=== PATIENT | female | born 1990 | race Caucasian/White ===

== ENCOUNTER 2024-11-22 14:27 | Outpatient (OUT) | payer OTHER, SELFPAY | END 2024-11-22 14:28 | disposition home or self-care (01) | LOC: PST 14:33 | PROVIDERS: Visit Provider Obstetrics & Gynecology | DX: Z01.818 Encounter for other preprocedural examination (principal); N94.6 Dysmenorrhea, unspecified; R10.2 Pelvic and perineal pain ==

== ENCOUNTER 2024-11-26 07:17 | Day surgery (SDC) | payer OTHER, SELFPAY ==
[2024-11-22 14:55] VITALS: BP 105/71; PULSE 71; TEMP 36.3; O2SAT 99; BMI 27.1
[2024-11-26] VITALS (11 sets, daily range): BP systolic 92–106; BP diastolic 44–80; PULSE 55–85; TEMP 36.3; O2SAT 95–100; BMI 26.8
--- OUTSIDE RECORDS SUMMARY | 2024-11-26 07:19 | XMS_ITS | CCD ---
Author Organization [facility] Care Team Providers Care General Administrator Name Role Phone PEEWEE KAUFFMAN Attending Unavail PEEWEE Dee Attending Unavail Salima Weeks Primary Care Provider [phone] Salima Bustamante Primary Care Provider Salima Bustamante Primary Care Provider [phone] Liz DIRECTOR EXTERNAL COMMUNICATIONS - Salima LICONA Primary Care Provider Maicol Sigala DO Primary Care Provider ELIA VALDEZ Attending Unavailable SALIMA BUSTAMANTE Primary Care Unavailable BRENNAN RAMON Attending Unavailable HETAL HOPKINS Attending Unavailable BRENNAN RAMON Referring Unavailable HETAL HOPKINS Attending Unavailable Allergies Allergy Classification Reported Allergen(s) Allergy Type Date of Onset Reaction(s) Facility (6 sources) [place] Allergy to substance 06-16-2023 Other [facility] Work Phone: Medications Current Medications Medication Drug Class(es) Dates Sig (Normalized) Sig (Original) Acetaminophen / HYDROcodone (6 sources) Opioid Agonist Start: 12-09-2019 hydrocodone-acetam inophen (NORCO) tablet 5-325 mg (STARTER PACK) take 1 tablet by addis th every six hours as needed for pain HYDROcodone-acetaminophen (NORCO) 5-325 MG per tablet Take 1 tablet by mouth every 6 hours as needed for Pain. Active ibuprofen 800 mg oral tablet (6 sources) Nonsteroidal Anti-inflammatory Drug Start: 09-15-2024 End: 12-14-2024 take 1 tablet by mouth once daily as needed for pain ibuprofen 800 MG tablet Indications: Dysmenorrhea Take 1 tablet (800 mg) by mouth Daily as needed for mild pain (2 days before and first 2 days during period) 12 tablet 09/15/2024 12/14/2024 Active take 2 tablets by mo uth every six hours as needed for pain ibuprofen (ADVIL;MOTRIN) 200 MG tablet T joao 400 mg by mouth every 6 hours as needed for Pain 0 Active metroNIDAZOLE 500 mg oral tablet (1 source) Nitroimidazole Antimicrobial Start: 04-06-2020 End: 04-13-2020 take 1 tablet by mouth twice daily metroNIDAZOLE (FLAGYL) 500 MG tablet Indications: Vaginal discharge Take 1 tablet by mouth 2 times daily for 7 days 14 tablet 0 04/06/2020 04/13/2020 Active naproxen sodium 275 mg oral tablet (7 sources) Nonsteroidal Anti-inflammatory Drug Start: 04-06-2020 take 1 tablet by mouth three times daily at mealtime as needed for pain naproxen sodium (ANAPROX) 275 MG tablet Indications: Pelvic pain in female Take 1 tablet by mouth 3 times daily (with meals) As needed for pelvic pain 60 tablet 3 04/06/2020 Active Start: 03-15-2019 End: 12-09-2019 take 1 tablet by mouth three times daily at mealtime as needed for pain naproxen sodium (ANAPROX) 275 MG tablet Indications: Pelvic cramping Take 1 tablet by mouth 3 times daily (with meals) As needed for cramping pain 60 tablet 3 03/15/2019 12/09/2019 Discontinued ondansetron 4 mg disintegrating oral tablet (9 sources) Serotonin-3 Receptor Antagonist Start: 09-15-2024 ondansetron ODT (Zofran-ODT) 4 MG disintegrating tablet Take 4 mg by mouth 09/15/2024 Active Start: 09-15-2024 End: 09-15-2024 4 mg, IntraVENous, ONCE, 1 d ose, On Fri09/15/24 at 0630 Start: 03-23-2022 End: 03-23-2022 ondansetron (ZOFRAN) injecti on 4 mg Start: 12-09-2019 End: 12-09-2019 ondansetron (ZOFRAN) injecti on 4 mg Completed/Discontinued Medications Medication Drug Class(es) Dates Sig (Normalized) Sig (Original) azithromycin 500 mg oral tablet (1 source) Macrolide Antimicrobial Start: 03-18-2019 End: 12-09-2019 take 2 tablets by mouth once daily, then take 1 tablet by mouth once azithromycin (ZITHROMAX) 500 MG tablet Indications: Chlamydia Take 2 tablets by mouth daily Take both tablets once 2 tablet 0 03/18/2019 12/09/2019 Discontinued (Therapy completed) ethinyl estradiol 0.035 mg / norgestimate 0.25 mg oral tablet (3 sources) Progestin, Estrogen Start: 12-17-2019 End: 03-23-2022 take 1 tablet by mouth once daily, then take 0.25-35 tablets by mouth once norgestimate-ethin yl estradiol (ESTARYLLA) 0.25-35 MG-MCG per tablet Indications: Irregular menstrual cycle TAKE 1 TABLET BY MOUTH DAILY 28 tablet 12 12/17/2019 03/23/2022 Discontinued (Therapy completed) Start: 04-09-2019 End: 12-09-2019 take 1 tablet by mouth once daily ESTARYLLA 0.25-35 MG-MCG per tablet Indications: Irregular menstrual cycle TAKE 1 TABLET BY MOUTH DAILY 28 tablet 0 04/09/2019 12/09/2019 Discontinued (Therapy completed) iopamidol (ISOVUE-370) 76 % injection 75 mL (1 source) Start: 03-23-2022 End: 03-23-2022 iopamidol (ISOVUE-370) 76 % injection 75 mL 1 ml ketorolac tromethamine 30 mg/ml cartridge (2 sources) Nonsteroidal Anti-inflammatory Drug, Cyclooxygenase Inhibitor Start: 09-15-2024 End: 09-15-2024 30 mg, IntraVENous, ONCE, 1 dose, On Fri09/15/24 at 0630, Do not administer for more than 5 days. Start: 03-23-2022 End: 03-23-2022 ketorolac (TORADOL) injectio n 30 mg 1 ml morphine sulfate 2 mg/ml cartridge (1 source) Opioid Agonist Start: 03-23-2022 End: 03-23-2022 morphine (PF) injection 2 mg PARoxetine hydrochloride 10 mg oral tablet (3 sources) Serotonin Reuptake Inhibitor Start: 07-17-2023 End: 09-15-2024 take 1 tablet by mouth at bedtime PARoxetine (Paxil) 10 MG tablet Indications: Current mild episode of major depressive disorder without prior episode (HCC) (CMS/HCC) Take 1 tablet (10 mg) by mouth at bedtime. 90 tablet 1 07/17/2023 09/15/2024 Discontinued 50 ml sodium chloride 9 mg/ml injection (1 source) Start: 09-15-2024 End: 09-15-2024 1,000 mL, IntraVENous, at 983.6 mL/hr, Administer over 61 Minutes, ONCE, On Fri09/15/24 at 0630, For 1 dose Problems Active Problems Problem Classification Problem Date Documented Date Episodic/Chronic Abdominal pain (13 sources) Abdominal pain; Translations: [Lower abdominal pain] Onset: 06-16-2023 Episodic Diabetes mellitus without complication (2 sources) Abnormal glucose level; Translations: [Other abnormal glucose] 09-15-2024 Episodic Malaise and fatigue (2 sources) Fatigue; Translations: [Other fatigue] 09-15-2024 Episodic Menstrual disorders (8 sources) Dysmenorrhea; Translations: [Dysmenorrhea, unspecified] 09-15-2024 Chronic Nausea and vomiting (2 sources) Nausea; Translations: [Nausea] Onset: 09-15-2024 09-15-2024 Episodic Nonmalignant breast conditions (4 sources) Lump in upper outer quadrant of left breast; Translations: [Unspecified lump in the left breast, upper outer quadrant] Episodic Nutritional deficiencies (2 sources) Vitamin D deficiency; Translations: [Vitamin D deficiency, unspecified] 09-15-2024 Chronic Other female genital disorders (1 source) Vaginal discharge; Translations: [Vaginal discharge] Episodic Other screening for suspected conditions (not mental disorders or infectious disease) (20 sources) Abnormal cytology findings; Translations: [LGSIL (low grade squamous intraepithelial dysplasia)] Onset: 09-24-2012 Resolved: 05-12-2013 12-27-2014 Episodic Unclassified (1 source) Patient encounter status; Translations: [Encounter for well woman exam with routine gynecological exam] Past or Other Problems Problem Classification Problem Date Documented Da te Episodic/Chronic Allergic reactions (13 sources) Allergic reaction to nickel; Translations: [Allergic contact dermatitis due to metals] Onset: 10-13-2014 10-13-2014 Episodic Deficiency and other anemia (7 sources) Iron deficiency anemia; Translations: [Iron deficiency anemia, unspecified] Onset: 03-08-2013 Resolved: 05-12-2013 05-12-2013 Episodic Mood disorders (5 sources) Mood disorders Onset: 09-15-2024 09-15-2024 Other and delivery including normal (7 sources) ; Translations: [Encounter for supervision of normal , unspecified, unspecified trimester] Onset: 12-24-2012 Resolved: 05-12-2013 05-12-2013 Episodic Residual codes; unclassified (2 sources) H/O: section; Translations: [S/P repeat low transverse ] Onset: 10-09-2012 Resolved: 05-12-2013 05-12-2013 Episodic Results Test Name Value Interpretation Reference Range Facility CBC with Auto Differentialon 09-15-2024 Basophils (Bld) [#/Vol] 0.04 10*3/uL [facility] Basophils/100 WBC (Bld) 0 % 0 - 2 % B on [facility] Eosinophils (Bld) [#/Vol] 0.12 10*3/uL [facility] Eosinophils/100 WBC (Bld) 1 % 1 - 4 % [facility] Erythrocyte distribution width (RBC) [Ratio] 12.7 % 11.8 - 14.4 % [facility] Hematocrit (Bld) [Volume fraction] 38.2 % 36.3 - 47.1 % [facility] Hemoglobin (Bld) [Mass/Vol] 12.8 g/dL 11.9 - 15.1 g/dL [facility] Immature granulocytes (Bld) [#/Vol] 0.03 10*3/uL [facility] Immature granulocytes/100 WBC (Bld) 0 % 0 [facility] Interpretation and review of laboratory results Abnormal [facility] Lymphocytes/100 WBC (Bld) 13 % Low 24 - 43 % [facility] Lymphocytes/100 WBC (Bld) 1.20 % [facility] MCH (RBC) [Entitic mass] 31.8 pg 25.2 - 33.5 pg [facility] MCHC (RBC) [Mass/Vol] 33.5 g/dL 28.4 - 34.8 g/dL [facility] MCV (RBC) [Entitic vol] 95.0 fL 82.6 - 102.9 fL [facility] Monocytes/100 WBC (Bld) 5 % 3 - 12 % B on [facility] Monocytes/100 WBC (Bld) 0.43 % B on [facility] Neutrophils/100 WBC (Bld) 81 % High 36 - 65 % [facility] Nucleated RBC/100 WBC (Bld) [Ratio] 0.0 % 0.0 per 100 WBC [facility] Platelet mean volume (Bld) [Entitic vol] 10.6 fL 8.1 - 13.5 fL [facility] Platelets (Bld) [#/Vol] 315 10*3/uL [facility] RBC (Bld) [#/Vol] 4.02 10*6/uL 3.95 - 5.1 1 m/uL [facility] Segmented neutrophils/100 WBC (Bld) 7.43 % [facility] WBC other (Bld) [#/Vol] 9.3 B on [facility] CBC with Diffon 09-15-2024 Abs. Basophil 0.04 k/uL Normal 0.00-0.20 [facility] Comment on above: Performed By: #### C DP, CP #### [facility] [address] [place] [address] [place] [address] Emt B: Rancho Bobby MD Abs.Imm.Granulocyte 0.03 k/uL Normal 0.00-0.30 [facility] Comment on above: Performed By: #### C DP, CP #### [facility] [address] [place] [address] [place], [place] [id number] Emt B: Rancho Bobby MD Abs.Neutrophil (Seg) 7.43 k/uL Normal 1.50-8.10 [facility] Comment on above: Performed By: #### C DP, CP #### [facility] [address] [place] [address] Emt B: Rancho Bobby MD Basophils/100 WBC (Bld) 0 % Normal 0-2 M [facility] Comment on above: Performed By: #### C DP, CP #### [facility] [address] [place] [address] [place] [address] Emt B: Rancho Bobby MD Eosinophils (Bld) [#/Vol] 0.12 10*3/uL Normal 0.00-0.44 [facility] Comment on above: Performed By: #### C DP, CP #### [address] [place], [place] [phone] Emt B: Rancho Bobby MD Eosinophils/100 WBC (Bld) 1 % Normal 1-4 [facility] Comment on above: Performed By: #### C DP, CP #### [address] [place] [address] Emt B: Rancho Bobby MD Erythrocyte distribution width (RBC) [Ratio] 12.7 % Normal 11.8-14.4 [facility] Comment on above: Performed By: #### C DP, CP #### [address] [place], [place] [address] Emt B: Rancho Bobby MD Hematocrit (Bld) [Volume fraction] 38.2 % Normal 36.3-47.1 [facility] Comment on above: Performed By: #### C DP, CP #### [address] [place], [place] [address] Emt B: Rancho Bobby MD Hemoglobin (Bld) [Mass/Vol] 12.8 g/dL Normal 11.9-15.1 [facility] Comment on above: Performed By: #### C DP, CP #### [address] [place], [facility] Emt B: Rancho Bobby MD Immature granulocytes/100 WBC (Bld) 0 % Normal 0 [facility] Comment on above: Performed By: #### C DP, CP #### [address] [place], [place] [id number] Emt B: Rancho Bobby MD Lymphocytes (Bld) [#/Vol] 1.20 10*3/uL Normal 1.10-3.70 [facility] Comment on above: Performed By: #### C DP, CP #### [facility] [address] [place] [address] Dr[place], [place] [address] Emt B: Rancho Bobby MD Lymphocytes/100 WBC (Bld) 13 % Low 24-43 [facility] Comment on above: Performed By: #### C DP, CP #### [address] [place], [place] [address] Emt B: Rancho Bobby MD MCH (RBC) [Entitic mass] 31.8 pg Normal 25.2-33.5 [facility] Comment on above: Performed By: #### C DP, CP #### [address] [place], [place] [address] Emt B: Rancho Bobby MD MCHC (RBC) [Mass/Vol] 33.5 g/dL Normal 28.4-34.8 [facility] Comment on above: Performed By: #### C DP, CP #### [address] [place], [place] [address] Emt B: Rancho Bobby MD MCV (RBC) [Entitic vol] 95.0 fL Normal 82.6-102.9 [facility] Comment on above: Performed By: #### C DP, CP #### [address] [place], [place] [address] Emt B: Rancho Bobby MD Monocytes (Bld) [#/Vol] 0.43 10*3/uL Normal 0.10-1.20 [facility] Comment on above: Performed By: #### C DP, CP #### [address] [place], [facility]83 Emt B: Rancho Bobby MD Monocytes/100 WBC (Bld) 5 % Normal 3-12 M [facility] Comment on above: Performed By: #### C DP, CP #### [facility] [address] [place] [address] Emt B: Rancho Bobby MD Neutrophil (Seg) 81 % High 36-65 [facility] Comment on above: Performed By: #### C DP, CP #### [facility] [address] [place], [place] [phone] Emt B: Rancho Bobby MD NRBC Automated 0.0 per 100 WBC Normal 0.0 [facility] Comment on above: Performed By: #### C DP, CP #### [facility] [address] [place] [address] Emt B: Rancho Bobby MD Platelet mean volume (Bld) [Entitic vol] 10.6 fL Normal 8.1-13.5 [facility] Comment on above: Performed By: #### C DP, CP #### [facility] [address] [place] [address] [place] [address] Emt B: Rancho Bobby MD Platelets (Bld) [#/Vol] 315 10*3/uL Normal 138-453 [facility] Comment on above: Performed By: #### C DP, CP #### [address] [place], [place] [id number] Emt B: Rancho Bobby MD RBC (Bld) [#/Vol] 4.02 10*6/uL Normal 3.95-5.11 [facility] Comment on above: Performed By: #### C DP, CP #### [address] [place], [place] [phone] Emt B: Rancho Bobby MD WBC (Bld) [#/Vol] 9.3 10*3/uL Normal 3.5-11.3 [facility] Comment on above: Performed By: #### C DP, CP #### [address] [place] [address] Emt B: Rancho Bobby MD [facility] 09-15-2024 Albumin [Mass/Vol] 4.1 g/dL 3.5 - 5.2 g/dL [facility] Albumin/Globulin [Mass ratio] 1.4 {ratio} 1.0 - 2.5 [facility] ALP [Catalytic activity/Vol] 57 U/L 35 - 104 U/L [facility] ALT [Catalytic activity/Vol] 11 U/L 10 - 35 U/L [facility] Anion gap [Moles/Vol] 7 mmol/L Low 9 - 16 mmol/L [facility] AST [Catalytic activity/Vol] 19 U/L 10 - 35 U/L [facility] Bilirubin [Mass/Vol] 0.2 mg/dL 0.00 - 1.20 mg/dL [facility] Calcium [Mass/Vol] 8.6 mg/dL 8.6 - 10. 4 mg/dL [facility] Chloride [Moles/Vol] 107 mmol/L 98 - 10 7 mmol/L [facility] CO2 [Moles/Vol] 25 mmol/L 20 - 31 mmol/L [facility] Creatinine [Mass/Vol] 0.8 mg/dL 0.50 - 0.90 mg/dL [facility] Est, Yusef Wood Rate - PINF [facility] Comment on above: These results are not intended for use in patients <18 years of age. eGFR results are calculated without a race factor using the 2020 CKD-EPI equation. Careful clinical correlation is recommended, particularly when comparing to results calculated using previous equations. The CKD-EPI equation is less accurate in patients with extremes of muscle mass, extra-renal metabolism of creatine, excessive creatine ingestion, or following therapy that affects renal tubular secretion. Glucose [Mass/Vol] 100 mg/dL High 74 - 99 mg/dL [facility] Interpretation and review of laboratory results Abnormal [facility] Potassium [Moles/Vol] 4.3 mmol/L 3.7 - 5.3 mmol/L [facility] Protein [Mass/Vol] 7.0 g/dL 6.6 - 8.7 g/dL [facility] Sodium [Moles/Vol] 139 mmol/L 136 - 145 mmol/L [facility] Urea nitrogen [Mass/Vol] 17 mg/dL 6 - 20 mg/dL [facility] Urea nitrogen/Creatinine [Mass ratio] 21 mg/mg High 9 - 20 [facility] Comp Metabolic Profon 2024 Albumin [Mass/Vol] 4.1 g/dL Normal 3.5-5.2 [facility] Comment on above: Performed By: #### C DP, CP #### [facility] [address] [place], [place] [phone] Emt B: Rancho Bobby MD Albumin/Glob Ratio 1.4 Normal 1.0-2.5 [facility] Comment on above: Performed By: #### C DP, CP #### [facility] [address] [place], [place] [phone] Emt B: Rancho Bobby MD Alkaline Phos 57 U/L Normal 35-104 [facility] Comment on above: Performed By: #### C DP, CP #### [facility] [address] [place], [place] [phone] Emt B: Rancho Bobby MD ALT [Catalytic activity/Vol] 11 U/L Normal 10-35 [facility] Comment on above: Performed By: #### C DP, CP #### [facility] [address] [place], [place] [phone] Emt B: Rancho Bobby MD Anion gap [Moles/Vol] 7 mmol/L Low 9-16 [facility] Comment on above: Performed By: #### C DP, CP #### [facility] [address] [place] [address] Emt B: Rancho Bobby MD AST [Catalytic activity/Vol] 19 U/L Normal 10-35 [facility] Comment on above: Performed By: #### C DP, CP #### [facility] [address] [place], [place] [phone] Emt B: Rancho Bobby MD Bilirubin [Mass/Vol] 0.2 mg/dL Normal 0.00-1.20 [facility] Comment on above: Performed By: #### C DP, CP #### [facility] [address] [place], [place] [phone] Emt B: Rancho Bobby MD BUN/CRE Ratio 21 High 9-20 [facility] Comment on above: Performed By: #### C DP, CP #### [facility] [address] [place], [place] [phone] Emt B: Rancho Bobby MD Calcium [Mass/Vol] 8.6 mg/dL Normal 8.6-10.4 [facility] Comment on above: Performed By: #### C DP, CP #### [facility] [address] [place] [address] [place], [place] [phone] Emt B: Rancho Bobby MD Chloride [Moles/Vol] 107 mmol/L Normal 98-107 [facility] Comment on above: Performed By: #### C DP, CP #### [address] [place], [place] [phone] Emt B: Rancho Bobby MD CO2 [Moles/Vol] 25 mmol/L Normal 20-31 [facility] Comment on above: Performed By: #### C DP, CP #### [facility] [address] [place] [address] [place], [place] [phone] Emt B: Rancho Bobby MD Creatinine [Mass/Vol] 0.8 mg/dL Normal 0.50-0.90 [facility] Comment on above: Performed By: #### C DP, CP #### [facility] [address] [place], [place] [phone] Emt B: Rancho Bobby MD GFR/1.73 sq M.predicted among non-blacks MDRD (S/P/Bld) [Vol rate/Area] mL/min/{1.73_m2} Normal >60 [facility] Comment on above: Result Comment: These results are not intended for use in patients <18 years of age. eGFR results are calculated without a race factor using the 2020 CKD-EPI equation. Careful clinical correlation is recommended, particularly when comparing to results calculated using previous equations. The CKD-EPI equation is less accurate in patients with extremes of muscle mass, extra-renal metabolism of creatine, excessive creatine ingestion, or following therapy that affects renal tubular secretion. Performed By: #### C DP, CP #### [facility] [address] [place] [address] [place] [address] Emt B: Rancho Bobby MD Glucose [Mass/Vol] 100 mg/dL High 74-99 [facility] Comment on above: Performed By: #### C DP, CP #### [facility] [address] [place] [address] [place], [place] [phone] Emt B: Rancho Bobby MD Potassium [Moles/Vol] 4.3 mmol/L Normal 3.7-5.3 [facility] Comment on above: Performed By: #### C DP, CP #### [address] [place], [place] [phone] Emt B: Rancho Bobby MD Protein [Mass/Vol] 7.0 g/dL Normal 6.6-8.7 [facility] Comment on above: Performed By: #### C DP, CP #### [facility] [address] [place] [address] [place] [place], [place] [phone] Emt B: Rancho Bobby MD Sodium [Moles/Vol] 139 mmol/L Normal 136-145 [facility] Comment on above: Performed By: #### C DP, CP #### [address] [place], [place] [phone] Emt B: Rancho Bobby MD Urea nitrogen [Mass/Vol] 17 mg/dL Normal 6-20 [facility] Comment on above: Performed By: #### C DP, CP #### [facility] [address] [address] Emt B: Rancho Bobby MD HCG ( test) Ql (U)o n 09-15-2024 Interpretation and review of laboratory results Normal [facility] Preg Test, Ur Negative Negative [facility] care [facility] Microscopic Urinalysison Bacteria LM Ql (Urine sed) 2+ Abnormal None [facility] Epithelial cells LM.HPF (Urine sed) [#/Area] 2 TO 5 [facility] Interpretation and review of laboratory results Abnormal [facility] Mucus Ql (Urine sed) TRACE Abnormal None [facility] RBC LM.HPF (Urine sed) [#/Area] 0 TO 2 [facility] WBC LM.HPF (Urine sed) [#/Area] 0 TO 2 [facility] UA w/Reflex Cultureon 2024 Bilirubin, SemiQt,Ur Negative Normal NEG [facility] Comment on above: Performed By: #### U AX, UMICAO #### [facility] [address] [address] Emt B: Rancho Bobby MD Blood, Urine 2+ Abnormal NEG [facility] Comment on above: Performed By: #### U AX, UMICAO #### [facility] [address] [place] [address] Emt B: Rancho Bobby MD Clarity (U) Clear Normal CLEAR [facility] Comment on above: Performed By: #### U AX, UMICAO #### [facility] [address] [address] Emt B: Rancho Bobby MD Color (U) Yellow Normal YEL [facility] Comment on above: Performed By: #### U AX, UMICAO #### [facility] [address] [place] [address] Emt B: Rancho Bobby MD Glucose Ql (U) Negative Normal NEG [facility] in Hospital Comment on above: Performed By: #### U AX, UMICAO #### [facility] [address] [place] [address] [place] [address] Emt B: Rancho Bobby MD Ketones Ql (U) Negative Normal NEG [facility] in Hospital Comment on above: Performed By: #### U AX, UMICAO #### [facility] [address] [place] [address] [place] [address] Emt B: Rancho Bobby MD Leukocyte esterase Test strip Ql (U) Negative Normal NEG [facility] Comment on above: Performed By: #### U AX, UMICAO #### [address] [place] [address] Emt B: Rancho Bobby MD Nitrite,Ur Negative Normal NEG [facility] Comment on above: Performed By: #### U AX, UMICAO #### [facility] [address] [place] [address] [place] [address] Emt B: Rancho Bobby MD PH,Ur 8.0 Normal 5.0-9.0 [facility] Comment on above: Performed By: #### U AX, UMICAO #### [facility] [address] [place] [address] [place] [address] Emt B: Rancho Bobby MD Protein Ql (U) Negative Normal NEG [facility] in Hospital Comment on above: Performed By: #### U AX, UMICAO #### [facility] [address] [place] [address] [place] [address] Emt B: Rancho Bobby MD Spec. Bannister,Ur 1.020 Normal 1.010-1.020 [facility] Comment on above: Performed By: #### U AX, UMICAO #### [facility] [address] [place] [address] [place] [address] Emt B: Rancho Bobby MD Urobilinogen,Ur Normal Normal 0.0-1.0 [facility] Comment on above: Performed By: #### U LISSA SALAZAR #### [facility] [address] [place] [address] Emt B: Rancho Bobby MD US NON OB TRANSVAGINAL W DOP PLERon 09-15-2024 US NON OB TRANSVAGINAL W DOPPLER EXAMINATION: TRANSVAGINAL PELVIC ULTRASOUND WITH DOPPLER 09/15/2024 TECHNIQUE: Transvaginal pelvic duplex ultrasound using B-mode/singh scaled imaging and Doppler spectral analysis and color flow was obtained. COMPARISON: None HISTORY: ORDERING SYSTEM PROVIDED HISTORY: pelvic pain TECHNOLOGIST PROVIDED HISTORY: pelvic pain 34-year-old female with pelvic pain FINDINGS: Measurements: Patient's LMP is 09/15/2024. Uterus: 9.4 x 6.1 x 4.8 cm. Endometrial stripe: 1.1 cm. Right Ovary:2.6 x 1.8 x 1.7 cm. Left Ovary: 2.3 x 1.7 x 1.8 cm. Ultrasound Findings: Uterus: Uterus demonstrates normal myometrial echotexture. Anteverted uterus. No uterine mass or fibroid. Endometrial stripe: Endometrial stripe is within normal limits. Right Ovary: Right ovary is within normal limits. There is normal arterial and venous Doppler flow. Left Ovary: Left ovary is within normal limits. There is normal arterial and venous Doppler flow. Free Fluid: No evidence of free fluid. IMPRESSION: Unremarkable pelvic ultrasound. Normal Doppler flow within the ovaries. Interpreted by: Bert Salamanca MD Signed by: Bert Salamanca MD 09/15/24 Final result Normal [facility] US Pelvis transvaginalon Unremarkable pelvic ultrasound. Normal Doppler flow within the ovaries. [facility] CONSOLIDATED EXAMINATION: TRANSVAGINAL PELVIC ULTRASOUND WITH DOPPLER 09/15/2024 TECHNIQUE: Transvaginal pelvic duplex ultrasound using B-mode/singh scaled imaging and Doppler spectral analysis and color flow was obtained. COMPARISON: None HISTORY: ORDERING SYSTEM PROVIDED HISTORY: pelvic pain TECHNOLOGIST PROVIDED HISTORY: pelvic pain 34-year-old female with pelvic pain FINDINGS: Measurements: Patient's LMP is 09/15/2024. Uterus: 9.4 x 6.1 x 4.8 cm. Endometrial stripe: 1.1 cm. Right Ovary:2.6 x 1.8 x 1.7 cm. Left Ovary: 2.3 x 1.7 x 1.8 cm. Ultrasound Findings: Uterus: Uterus demonstrates normal myometrial echotexture. Anteverted uterus. No uterine mass or fibroid. Endometrial stripe: Endometrial stripe is within normal limits. Right Ovary: Right ovary is within normal limits. There is normal arterial and venous Doppler flow. Left Ovary: Left ovary is within normal limits. There is normal arterial and venous Doppler flow. Free Fluid: No evidence of free fluid. [facility] Bert Guillen MD - 09/15/2024 EXAMINATION: TRANSVAGINAL PELVIC ULTRASOUND WITH DOPPLER 09/15/2024 TECHNIQUE: Transvaginal pelvic duplex ultrasound using B-mode/singh scaled imaging and Doppler spectral analysis and color flow was obtained. COMPARISON: None HISTORY: ORDERING SYSTEM PROVIDED HISTORY: pelvic pain TECHNOLOGIST PROVIDED HISTORY: pelvic pain 34-year-old female with pelvic pain FINDINGS: Measurements: Patient's LMP is 09/15/2024. Uterus: 9.4 x 6.1 x 4.8 cm. Endometrial stripe: 1.1 cm. Right Ovary:2.6 x 1.8 x 1.7 cm. Left Ovary: 2.3 x 1.7 x 1.8 cm. Ultrasound Findings: Uterus: Uterus demonstrates normal myometrial echotexture. Anteverted uterus. No uterine mass or fibroid. Endometrial stripe: Endometrial stripe is within normal limits. Right Ovary: Right ovary is within normal limits. There is normal arterial and venous Doppler flow. Left Ovary: Left ovary is within normal limits. There is normal arterial and venous Doppler flow. Free Fluid: No evidence of free fluid. IMPRESSION: Unremarkable pelvic ultrasound. Normal Doppler flow within the ovaries. [facility] Radiology Study observation (narrative) [facility] [employer] [facility] US Pelvis transvaginalOrdere d By: Bert Salamanca on 09-15-2024 [facility] Work Phone: Urinalysis with Reflex to Cu ltureon 09-15-2024 Bilirubin Ql (U) Negative NEGATIVE [facility] [employer] [facility] Clarity (U) Clear Clear [facility] Color (U) Yellow Yellow [facility] Glucose Test strip (U) [Mass/Vol] Negative NEGATIVE mg/dL [facility] Hemoglobin Auto test strip Ql (U) 2+ Abnormal NEGATIVE [facility] Interpretation and review of laboratory results Abnormal [facility] Ketones (U) [Mass/Vol] Negative NEGAT LUCIANO mg/dL [facility] Leukocyte esterase Test strip Ql (U) Negative NEGATIVE [facility] Nitrite Ql (U) Negative NEGATIVE [facility] pH (U) 8.0 [pH] 5.0 - 9.0 [facility] Protein (U) [Mass/Vol] Negative NEGAT LUCIANO mg/dL [facility] Specific gravity (U) [Rel density] 1.020 1.010 - 1.020 [facility] Urobilinogen Qn (U) Normal 0.0 - 1. 0 EU/dL [facility] Urinalysis,Microon 5 Bacteria 2+ Abnormal NONE [facility] Comment on above: Performed By: #### LISSA KHOURY #### [facility] [address] [place] [address] [place] [address] Emt B: Rancho Bobby MD Epithelial cells LM Ql (Urine sed) 2 TO 5 Normal 0-25 [facility] Comment on above: Performed By: #### U LISSA SALAZAR #### [facility] [address] [place] [address] Emt B: Rancho Bobby MD Mucus Strands TRACE Abnormal NONE [facility] Comment on above: Performed By: #### U LISSA SALAZAR #### [facility] [address] [place] [address] Emt B: Rancho Bobby MD Urine RBC's 0 TO 2 Normal 0-2 [facility] Comment on above: Performed By: #### U LISSA SALAZAR #### [facility] [address] [place] [address] Emt B: Rancho Bobby MD Urine WBC's 0 TO 2 Normal 0-5 [facility] Comment on above: Performed By: #### U LISSA SALAZAR #### [facility] [address] [place] [address] Emt B: Rancho Bobby MD US BREAST LIMITED LEFTOrdere d By: Katie Ogden on 12-16-2022 Interpretation and review of laboratory results Abnormal [facility] [employer] Work Phone: [facility] Work Phone: US BREAST LIMITED LEFTon Probably benign lesion corresponds to palpable abnormality, suspected fibroadenoma with six month ultrasound follow-up advised. BI-RADS 3 BIRADS: BIRADS - CATEGORY 3 Findings are probably benign. A short interval follow-up left breast ultrasound is recommended in 6 months. OVERALL ASSESSMENT - PROBABLY BENIGN. A letter of notification will be sent to the patient regarding the results. [facility] CONSOLIDATED EXAMINATION: TARGETED ULTRASOUND OF THE LEFT BREAST 12/16/2022 COMPARISON: None. HISTORY: ORDERING SYSTEM PROVIDED HISTORY: Mass of upper outer quadrant of left breast Patient reported palpable asymmetry upper-outer left breast. TC score approximately 14. FINDINGS: Targeted ultrasonography of the left breast in the area of palpable abnormality reveals a hypoechoic relatively uniform solid mass in the subdermal tissues 1.32 x 0.73 x 1.29 cm with good posterior acoustic enhancement without vascularity, appearance favoring fibroadenoma. Examination of the left axilla reveals normal appearing lymph nodes. [facility] CONSOLIDATED Radiology Study observation (narrative) [facility]DA [facility] [employer] Work Phone: US NON OB TRANSVAGINALon Unremarkable pelvic ultrasound. [facility] CONSOLIDATED EXAMINATION: PELVIC ULTRASOUND 04/05/2022 TECHNIQUE: Transvaginal pelvic ultrasound duplex ultrasound using B-mode/singh scaled imaging, Doppler spectral analysis and color flow Doppler was obtained. COMPARISON: CT abdomen and pelvis March 23, 2022. HISTORY: ORDERING SYSTEM PROVIDED HISTORY: Pelvic pain FINDINGS: Measurements: Uterus: 9.8 x 6.3 x 4.2 cm Endometrial stripe: 6.8 mm Right Ovary:3.3 x 2.1 x 2.3 cm Left Ovary: 2.9 x 2.1 x 1.8 cm Ultrasound Findings: Uterus: Uterus demonstrates normal myometrial echotexture. Endometrial stripe: Endometrial stripe is within normal limits. Right Ovary: Right ovary is within normal limits. There is normal arterial and venous Doppler flow. Left Ovary: Left ovary is within normal limits. There is normal arterial and venous Doppler flow. Free Fluid: No evidence of free fluid. [facility] Petros Sampson Jr., DO - 04/05/2022 EXAMINATION: PELVIC ULTRASOUND 04/05/2022 TECHNIQUE: Transvaginal pelvic ultrasound duplex ultrasound using B-mode/singh scaled imaging, Doppler spectral analysis and color flow Doppler was obtained. COMPARISON: CT abdomen and pelvis March 23, 2022. HISTORY: ORDERING SYSTEM PROVIDED HISTORY: Pelvic pain FINDINGS: Measurements: Uterus: 9.8 x 6.3 x 4.2 cm Endometrial stripe: 6.8 mm Right Ovary:3.3 x 2.1 x 2.3 cm Left Ovary: 2.9 x 2.1 x 1.8 cm Ultrasound Findings: Uterus: Uterus demonstrates normal myometrial echotexture. Endometrial stripe: Endometrial stripe is within normal limits. Right Ovary: Right ovary is within normal limits. There is normal arterial and venous Doppler flow. Left Ovary: Left ovary is within normal limits. There is normal arterial and venous Doppler flow. Free Fluid: No evidence of free fluid. IMPRESSION: Unremarkable pelvic ultrasound. [facility] [employer] Work Phone: [facility] [employer] Work Phone: Radiology Study observation (narrative) [facility] [employer] Work Phone: CBC with Auto Differentialon 03-23-2022 Absolute Eos # 0.08 [facility] [employer] Immature Granulocyte 0.04 [facility] [employer] Absolute Lymph # 1.39 [facility] [employer] Absolute Dundy # 0.45 [facility] [employer] Basophils (Bld) [#/Vol] 0.04 10*3/uL [facility] Basophils/100 WBC (Bld) 0 % 0 - 2 % B ON [facility] Eosinophils/100 WBC (Bld) 1 % 1 - 4 % [facility] Hematocrit (Bld) [Volume fraction] 38.1 % 36.3 - 47.1 % [facility] Hemoglobin (Bld) [Mass/Vol] 12.3 g/dL 11.9 - 15.1 g/dL [facility] Immature granulocytes/100 WBC (Bld) 0 % 0 [facility] Interpretation and review of laboratory results Abnormal [facility] Lymphocytes/100 WBC (Bld) 12 % Low 24 - 43 % [facility] MCH (RBC) [Entitic mass] 31.5 pg 25.2 - 33.5 pg [facility] MCHC (RBC) [Mass/Vol] 32.3 g/dL 28.4 - 34.8 g/dL [facility] MCV (RBC) [Entitic vol] 97.4 fL 82.6 - 102.9 fL [facility] Monocytes/100 WBC (Bld) 4 % 3 - 12 % B ON [facility] NRBC Automated 0.0 0.0 per 100 WBC [facility] Platelet distribution width (Bld) [Ratio] 12.7 % 11.8 - 14.4 % [facility] Platelet mean volume (Bld) [Entitic vol] 10.3 fL 8.1 - 13.5 fL [facility] Platelets (Bld) [#/Vol] 319 10*3/uL [facility] RBC (Bld) [#/Vol] 3.91 10*6/uL Low 3.95 - 5.1 1 m/uL [facility] Segmented neutrophils/100 WBC (Bld) 83 % High 36 - 65 % [facility] Segs Absolute 9.46 High [facility] WBC (Bld) [#/Vol] 11.5 10*3/uL High [facility] CMPon 03-23-2022 Albumin [Mass/Vol] 4.5 g/dL 3.5 - 5.2 g/dL [facility] Albumin/Globulin [Mass ratio] 1.7 {ratio} 1 - 2.5 [facility] ALP (Bld) [Catalytic activity/Vol] 50 U/L 35 - 104 U/L [facility] ALT [Catalytic activity/Vol] 10 U/L 5 - 33 U/L [facility] Anion gap [Moles/Vol] 9 mmol/L 9 - 17 mmol/L [facility] AST [Catalytic activity/Vol] 18 U/L NINF - 32 U/L [facility] Bilirubin [Mass/Vol] 0.31 mg/dL 0.3 - 1 .2 mg/dL [facility] Calcium [Mass/Vol] 9.0 mg/dL 8.6 - 10. 4 mg/dL [facility] Chloride [Moles/Vol] 100 mmol/L 98 - 10 7 mmol/L [facility] CO2 [Moles/Vol] 25 mmol/L 20 - 31 mmol/L [facility] Creatinine [Mass/Vol] 0.72 mg/dL 0.5 - 0.9 mg/dL [facility] Free PSA/Total PSA [Mass fraction] 7.2 g/dL 6.4 - 8.3 g/dL [facility] GFR >60 60 - PI NF mL/min [facility] GFR Non- >60 60 - PINF mL/min [facility] Glucose [Mass/Vol] 104 mg/dL High 70 - 99 mg/dL [facility] Interpretation and review of laboratory results Abnormal [facility] Potassium [Moles/Vol] 3.8 mmol/L 3.7 - 5.3 mmol/L [facility] Sodium [Moles/Vol] 134 mmol/L Low 135 - 144 mmol/L [facility] Urea nitrogen (BldV) [Mass/Vol] 16 mg/dL 6 - 20 mg/dL [facility] Urea nitrogen/Creatinine (Bld) [Mass ratio] 22 High 9 - 20 [facility] COVID-19, Rapidon 03-23-2022 SARS-CoV-2 (COVID-19) RNA LUCHO+probe Ql (Unsp spec) Not detected Not Detected [facility] Comment on above: Rapid NAAT: The specimen is NEGATIVE for SARS-CoV-2, the novel coronavirus associated with COVID-19. The ID NOW COVID-19 assay is designed to detect the virus that causes COVID-19 in patients with signs and symptoms of infection who are suspected of COVID-19. An individual without symptoms of COVID-19 and who is not shedding SARS-CoV-2 virus would expect to have a negative (not detected) result in this assay. Negative results should be treated as presumptive and, if inconsistent with clinical signs and symptoms or necessary for patient management, should be tested with an alternative molecular assay. Negative results do not preclude SARS-CoV-2 infection and should not be used as the sole basis for patient management decisions. Fact sheet for Healthcare Providers: https://www.fda.gov/media/564088/download Fact sheet for Patients: https://www.fda.gov/media/678376/download Methodology: Isothermal Nucleic Acid Amplification Specimen Description .NASOPHARYNGEAL SWAB [facility] Laboratory - Chemistry and C hemistry - challengeon 03-23-2022 GFR/1.73 sq M.predicted MDRD (S/P/Bld) [Vol rate/Area] [facility] Comment on above: Average GFR for 30-3 9 years old: 107 mL/min/1.73sq m Chronic Kidney Disease: <60 mL/min/1.73sq m Kidney failure: <15 mL/min/1.73sq m eGFR calculated using average adult body mass. Additional eGFR calculator available at: http://www.[employer]gain.Kite.ly/multiple_crcl_2012.htm Stage 1: Some kidney damage normal GFR Stage 2: Mild kidney damage GFR 60-89 Stage 3: Moderate kidney damage GFR 30-59 Stage 4: Severe kidney damage GFR 15-29 Stage 5: Severe kidney damage GFR <15 ESRD - chronic treatment by dialysis or transplant Lipaseon 03-23-2022 Lipase [Catalytic activity/Vol] 36 U/L 13 - 60 U/L [facility] Microscopic Urinalysison Bacteria, UA TRACE Abnormal None [facility] Epithelial Cells UA 5 TO 10 [facility] Interpretation and review of laboratory results Abnormal [facility] RBC, UA 0 TO 2 [facility] WBC, UA 5 TO 10 [facility] No Panel Informationon 03-23 [facility] Urinalysis with Reflex to Cu ltureon 03-23-2022 Bilirubin Urine Negative NEGATIVE [facility] Color, UA Yellow Yellow [facility] Glucose, Ur Negative NEGATIVE [facility] Interpretation and review of laboratory results Abnormal [facility] Ketones Ql (U) Negative NEGATIVE [facility] Leukocyte esterase Test strip Ql (U) Negative NEGATIVE [facility] Nitrite, Urine Negative NEGATIVE [facility] pH, UA 6.0 5 - 9 [facility] Protein, UA Negative NEGATIVE [facility] Specific Bannister, UA High 1.01 - 1.02 [facility] Turbidity UA Clear Clear [facility] Urine Hgb TRACE Abnormal NEGATIVE [facility] Urobilinogen, Urine Normal Normal [facility] Urine Preg (Lab)on 2 Beta HCG ( test) Ql (U) Negative NEGATIVE [facility] Comment on above: Specimens with hCG l evels near the threshold of the test (25 mIU/mL) may give a negative or indeterminate result. In such cases, another test should be performed with a new specimen in 48-72 hours. If early is suspected clinically in this setting, correlation with quantitative serum b-hCG level is suggested. [email or web address] has confirmed the use of plasma for this test. This has not been cleared or approved by the U.S. Food and Drug Administration. The FDA has determined that such clearance is not necessary. [facility] CBC Auto Differentialon 11-17 Basophils (Bld) [#/Vol] 0.04 10*3/uL [place] Basophils/100 WBC (Bld) 0 % 0 - 2 % [place] Differential Type NOT REPORTED [place] Eosinophils (Bld) [#/Vol] 0.07 10*3/uL [place] Eosinophils/100 WBC (Bld) 1 % 1 - 4 % [place] Erythrocyte distribution width (RBC) [Ratio] 13.0 % 11.8 - 14.4 % [place] Hematocrit (Bld) [Volume fraction] 39.5 % 36.3 - 47.1 % [place] Hemoglobin (Bld) [Mass/Vol] 12.8 g/dL 11.9 - 15.1 g/dL [place] Immature granulocytes (Bld) [#/Vol] 1 % High 0 [place] Immature granulocytes (Bld) [#/Vol] 0.07 10*3/uL [place] Interpretation and review of laboratory results Abnormal [place] Lymphocytes (Bld) [#/Vol] 1.12 10*3/uL [place] Lymphocytes/100 WBC (Bld) 7 % Low 24 - 43 % [place] MCH (RBC) [Entitic mass] 30.9 pg 25.2 - 33.5 pg [place] MCHC (RBC) [Mass/Vol] 32.4 g/dL 28.4 - 34.8 g/dL [place] MCV (RBC) [Entitic vol] 95.4 fL 82.6 - 102.9 fL [place] Monocytes (Bld) [#/Vol] 0.40 10*3/uL [place] Monocytes/100 WBC (Bld) 3 % 3 - 12 % [place] Platelet mean volume (Bld) [Entitic vol] 10.2 fL 8.1 - 13.5 fL [place] Platelets (Bld) [#/Vol] NOT REPORTED [place] Platelets (Bld) [#/Vol] 370 10*3/uL [place] RBC (Bld) [#/Vol] 4.14 10*6/uL 3.95 - 5.1 1 m/uL [place] RBC morphology finding Nom (Bld) NOT REPORTED [place] Segmented neutrophils/100 WBC (Bld) 88 % High 36 - 65 % [place] Segs Absolute 13.82 High [place] WBC (Bld) [#/Vol] 15.5 10*3/uL [place] WBC (Bld) [#/Vol] 0.0 10*3/uL 0.0 per 10 0 WBC [place] WBC Morphology NOT REPORTED [place] Comprehensive Metabolic Pane l w/ Reflex to MGon 12-09-2019 Albumin [Mass/Vol] 4.2 g/dL 3.5 - 5.2 g/dL [place] Albumin/Globulin [Mass ratio] 1.2 {ratio} [place] ALP [Catalytic activity/Vol] 69 U/L 35 - 104 U/L [place] ALT [Catalytic activity/Vol] 17 U/L 5 - 33 U/L [place] Anion gap [Moles/Vol] 10 mmol/L 9 - 17 mmol/L [place] AST [Catalytic activity/Vol] 26 U/L <32 [place] Bilirubin Ql (U) 0.20 mg/dL Low 0.3 - 1.2 mg/dL [place] Bun/Cre Ratio 24 High [place] Calcium [Mass/Vol] 9.1 mg/dL 8.6 - 10. 4 mg/dL [place] Chloride [Moles/Vol] 103 mmol/L 98 - 10 7 mmol/L [place] CO2 [Moles/Vol] 24 mmol/L 20 - 31 mmol/L [place] Creatinine [Mass/Vol] 0.76 mg/dL 0.5 - 0.9 mg/dL [place] GFR >60 >60 mL/min [place] GFR Non- >60 >60 mL/min [place] Glucose [Mass/Vol] 121 mg/dL High 70 - 99 mg/dL [place] Interpretation and review of laboratory results Abnormal [place] Potassium [Moles/Vol] 4.1 mmol/L 3.7 - 5.3 mmol/L [place] Protein [Mass/Vol] 7.6 g/dL 6.4 - 8.3 g/dL [place] Sodium [Moles/Vol] 137 mmol/L 135 - 144 mmol/L [place] Urea nitrogen [Mass/Vol] 18 mg/dL 6 - 20 mg/dL [place] Metabolic Panelon 12-09-2019 GFR/1.73 sq M predicted among non-blacks MDRD (S/P/Bld) [Vol rate/Area] [place] Comment on above: Stage 1: Some kidney damage normal GFR Stage 2: Mild kidney damage GFR 60-89 Stage 3: Moderate kidney damage GFR 30-59 Stage 4: Severe kidney damage GFR 15-29 Stage 5: Severe kidney damage GFR <15 ESRD - chronic treatment by dialysis or transplant Average GFR for 20-2 9 years old: 116 mL/min/1.73sq m Chronic Kidney Disease: <60 mL/min/1.73sq m Kidney failure: <15 mL/min/1.73sq m eGFR calculated using average adult body mass. Additional eGFR calculator available at: http://www.[employer]/multiple_crcl_2012.htm Microscopic Urinalysison Amorphous, UA NOT REPORTED None [place] Bacteria, UA NOT REPORTED None [place] Casts UA NOT REPORTED /LPF [place], [place] Crystals, UA NOT REPORTED None /HPF [place] Epithelial Cells UA 0 TO 2 [place] Mucus, UA NOT REPORTED None [place] Other Observations UA NOT REPORTED NOT REQ. [place] RBC (U) [#/Vol] 0 TO 2 [place] Renal Epithelial, UA NOT REPORTED 0 /HPF [place], [place] Trichomonas, UA NOT REPORTED None [place], [place] WBC, UA 2 TO 5 [place] Yeast, UA NOT REPORTED None [place] - [place] , Urineon 0 Beta HCG ( test) Ql (U) Negative NEGATIVE [place] Comment on above: Specimens with hCG l evels near the threshold of the test (25 mIU/mL) may give a negative or indeterminate result. In such cases, another test should be performed with a new specimen in 48-72 hours. If early is suspected clinically in this setting, correlation with quantitative serum b-hCG level is suggested. [employer] has confirmed the use of plasma for this test. This has not been cleared or approved by the U.S. Food and Drug Administration. The FDA has determined that such clearance is not necessary. Urinalysis, reflex to micros copicon 12-09-2019 Bilirubin Urine Negative NEGATIVE [facility] [place], [place] Color, UA YELLOW YELLOW [facility], [place] Glucose, Ur Negative NEGATIVE [facility] [place], [place] Interpretation and review of laboratory results Abnormal [facility] [employer] [place], [place] Ketones Ql (U) Negative NEGATIVE [facility] [place], [place] Leukocyte esterase Test strip Ql (U) Negative NEGATIVE [facility] [employer] [place], [place] Nitrite, Urine Negative NEGATIVE [facility] [place], [place] pH, UA 7.0 [facility], [place] Protein (U) [Mass/Vol] Negative NEGATIVE [facility] [employer], [place] Specific [place], UA 1.025 High [facility] [place] Turbidity UA CLEAR CLEAR [facility] - [place], [place] Urinalysis Comments NOT REPORTED [facility] [employer], [place] Urine Hgb 2+ Abnormal NEGATIVE [facility] [place], [place] Urobilinogen, Urine Normal Normal [facility], [place] Operative Reporton 9 Operative Report Indication for Surgery 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 Of note- pt was recently treated for chlamydia. All r/b/a of tubal ligation were d/w pt, including risk of failure 12/999 and risk of regret- she agreed and consents were signed. Preoperative Diagnosis Desires permanent sterilization Postoperative Diagnosis same Pelvic adhesive disease Operation Lap. JASMYNE, right partial salpingectomy, left salpingectomy Surgeon(s) [employer] Anesthesia general Estimated Blood Loss <5cc Urine Output 75cc straight drain prior to procedure Specimen(s) 2 right tube segments- cornual region and fimbria, left tube Complications none Medications None Technique Pt was taken to the operating room where she was placed under general anesthesia. She had her bladder drained with red rubber catheter. SCD's were placed for DVT prophylaxis, and her feet placed into yellow fin stirrups. She was then prepped and draped in normal sterile fashion in the dorsal lithotomy position. A weighted speculum was then placed into the vagina, and a right angle retractor was used to help visualize the cervix, which was easily visualized and grasped at the anterior portion with a single-toothed tenaculum. The uterus was the gently sounded to about 9cm, and the cervix was progressively dilated. Croner manipulator was then placed into the uterus. All other instruments were removed from the vagina. Attention was then turned to the abdomen. Following injection of local anesthetic, a 10mm incision was made with the scalpel at the pt's umbilicus. Verres needle was then inserted into the abdomen with an opening pressure of 5, and a pneumoperitoneum was achieved. The 10mm trocar was then placed into the abdomen without complication. Camera was inserted into the abdomen, and inspection of the pelvis showed scarring from anterior uterus to anterior abdominal wall, likely from past c/sections. In addtion, there was significant scarring at left adnexa, involving bowel, tube and ovary. There were no other gross abnormalities. Two 5mm ports were then placed at the pt's right and left lateral sides. Following appropriate identification of each tube, the left tube was grasped and transected off of the mesosalpinx and cornual region with the ligasure. The bowel was bluntly dissected off of the right tube in an attempt to be able to safely remove this tube. However, a portion remainder in close proximity. Because of this, the tube was ligated and transected with the ligasure from the cornual region, and then off of the mesosalpinx as far as was possible. This portion- about 4cm- was removed from the body. The fimbria were free from adhesions. So this portion was grasped and also ligated and transected with the ligasure, then removed from the body. The area was noted to be hemostatic, and pneumoperitoneum was released. All trocars were removed from the body. The 10mm port had a deep stitch placed with 2-O vicryl, and all skin was closed with 4-O vicryl in a subcuticular fashion. Pt tolerated this procedure well. Sponge/Needle Count correct per RN Fluid Count 1000cc LR Electronically signed by Kait QUINONEZ Peewee Landon 03/26/19 10:[address] [facility] Surgical Pathology Reporton 03-26-2019 Surgical Pathology Report Clinical Information Procedure: Bilateral Laparoscopic Salpingectomy Pre-operative diagnosis: VOLUNTARY STERILIZATION SP Specimen A Right Fallopian Tube Segment B Left Fallopian Tube Segment Gross Description Part A: Received in formalin labeled 'right fallopian tube segment' is a right fallopian tube received in two pieces measuring in aggregate of 3.0 cm in length x 0.4 cm in diameter. The larger piece of fallopian tube without fimbriae measures 2.0 cm in length x 0.4 cm in diameter and is submitted in cassette A1. The smaller piece of fallopian tube with attached fimbriae measures 1.0 cm in length x 0.4 cm in diameter and is submitted in cassette A1. Part B: Received in formalin labeled 'left fallopian tube segment' is a pink naranjo fallopian tube with attached fimbriae measuring 6.0 cm in length x 0.4 to 0.5 cm in diameter. There is a paratubal cyst measuring 0.3 cm in greatest dimension. Sections from the left fallopian tube, with one section showing the paratubal cyst, are submitted in cassette B1. Microscopic Description Parts A and B: Sections show complete cross-sections of fallopian tubes. The mucosa of the fallopian tubes show a marked infiltrate of plasma cells and lymphocytes with neutrophils. Diagnosis Parts A and B: Parts A/B: Fallopian tubes, right and left, partial, bilateral salpingectomy (voluntary sterilization): No pathologic changes. Complete cross-sections of fallopian tubes are noted. Severe chronic and mild acute salpingitis of both fallopian tubes, slightly worse on left side. [id number] AT[facility] [id number] Fatima MD (Electronically signed by) Verified: 03/30/19 13:[address] [facility] Comment on above: Performed By: #### S ID #### [facility] (DEFAULT) [facility] [place] [address] Vital Signs Date Time Vital Sign Value Performing Clinician Facility 11-02-2024 14:52-0400 Body mass index (BMI) [Ratio] 26.76 kg/m2 Hetal Sandeep DO Work Phone: [facility] 11-02-2024 14:52-0400 Body weight 72.94 kg Hetal Sandeep DO Work Phone: [facility] 11-02-2024 14:52-0400 Diastolic blood pressure 62 mm[Hg] Hetal Sandeep DO Work Phone: [facility] 11-02-2024 14:52-0400 Systolic blood pressure 96 mm[Hg] Hetal Sandeep DO Work Phone: [facility] 10-13-2024 16:02-0500 Body mass index (BMI) [Ratio] 26.81 kg/m2 Hetal Sandeep DO Work Phone: [facility] 10-13-2024 16:02-0500 Body weight 73.08 kg Hetal Sandeep DO Work Phone: [facility] 09-15-2024 13:23-0500 Body mass index (BMI) [Ratio] 27.79 kg/m2 Brennan Ramon [employer] Work Phone: [facility] 09-15-2024 13:23-0500 Body temperature 98.2 [degF] Brennan Ramon [employer] Work Phone: [facility] 09-15-2024 13:23-0500 Body weight 75.75 kg Brennan Ramon [employer] Work Phone: [facility] 09-15-2024 13:23-0500 Diastolic blood pressure 76 mm[Hg] Brennan Ramon [employer] Work Phone: [facility] 09-15-2024 13:23-0500 Heart rate 71 /min Brennan Ramon [employer] Work Phone: [facility] 09-15-2024 13:23-0500 SaO2% (BldA) [Mass fraction] 98 % Brennan Ramon [employer] Work Phone: [facility] 09-15-2024 13:23-0500 Systolic blood pressure 120 mm[Hg] Brennan Tristen LICONA Work Phone: [facility] 09-15-2024 06:08-0500 Diastolic blood pressure 61 mm[Hg] Olinda [facility]ron [facility] 09-15-2024 06:08-0500 SaO2% (BldA) [Mass fraction] 100 % Olinda Barron MD [facility] [employer] 09-15-2024 06:08-0500 Systolic blood pressure 114 mm[Hg] Ol[facility] 09-15-2024 06:07-0500 Body temperature 97.9 [degF] Olinda Barron MD [facility] 09-15-2024 06:07-0500 Heart rate 63 /min Olinda Barron MD [facility] 09-15-2024 06:07-0500 Respiratory rate 18 /min Olinda Barron MD [facility] 03-23-2022 13:23-0400 Diastolic blood pressure 75 mm[Hg] Salima Rine Work Phone: [facility] 03-23-2022 13:23-0400 SaO2% (BldA) [Mass fraction] 100 % Salima Rine Work Phone: [facility] 03-23-2022 13:23-0400 Systolic blood pressure 97 mm[Hg] Salima Rine Work Phone: [facility] 03-23-2022 11:04-0400 Body temperature 98.8 [degF] Salima Rine Work Phone: [facility] 03-23-2022 11:04-0400 Heart rate 66 /min Salima Rine Work Phone: [facility] 03-23-2022 11:04-0400 Respiratory rate 16 /min Salima Rine Work Phone: NAN[facility]OSTOMO [facility] 12-09-2019 15:30-0400 BMI (Body Mass Index) 26.63 kg/m2 Dre Marino [place] [facility]- [place], [place] 12-09-2019 15:30-0400 Body Temperature 99 [degF] Dre [facility] [place] 12-09-2019 15:30-0400 Body weight 72.58 [facility] [place] 12-09-2019 15:30-0400 BP Diastolic 76 mm[Hg] [facility] [place] 12-09-2019 15:30-0400 BP Systolic 108 mm[Hg] [facility] [place] 12-09-2019 15:30-0400 Height 165.1 cm Dre TaylorChowNow [facility] , [place] 12-09-2019 15:30-0400 Pulse (Heart Rate) 85 /min Dre Marino [facility], [place] 12-09-2019 15:30-0400 Pulse Oximetry 97 % Dre TaylorChowNow [facility] , [place] 12-09-2019 15:30-0400 Respiratory Rate 18 /min Dre TaylorInnoviti [facility] , [place] Encounters Encounter Date Encounter Type Care Provider Facility Start: 11-02-2024 End: 11-02-2024 ambulatory HETAL SANDEEP Not Available Start: 11-02-2024 End: 11-02-2024 Office outpatient visit 15 minutes Hetal Sandeep DO Work Phone: [facility] Comment on above: Pre-op examination; Dysmenorrhea; Pelvic pain in female Start: 11-02-2024 End: 11-02-2024 Preprocedural examination done Hetal Sandeep DO Work Phone: [facility] Start: 10-13-2024 End: 10-13-2024 ambulatory HETAL SANDEEP Not Available Start: 10-13-2024 End: 10-13-2024 Office outpatient new 20 minutes Hetal Sandeep DO Work Phone: [facility] Comment on above: Dysmenorrhea; Pelvic pain in female Start: 10-13-2024 End: 10-13-2024 Bamboo flowsheet Hetal Sandeep DO Work Phone: [facility] Start: 10-13-2024 End: 10-13-2024 Bamboo flowsheet Hetal Sandeep DO Work Phone: [facility] Start: 09-15-2024 End: 09-15-2024 Bamboo flowsheet Brennan Ramon [employer] Work Phone: [facility] Start: 09-15-2024 End: 09-15-2024 Bamboo flowsheet Brennan Ramon [employer] [facility] Start: 09-15-2024 End: 09-15-2024 Patient encounter status Brennan Ramon [employer] Work Phone: [facility] Start: 09-15-2024 End: 09-15-2024 Periodic preventive med est patient 18-39 yrs Brennan Ramon [employer] Work Phone: [facility] Comment on above: Cervical cancer scre ening (Primary Dx); Wellness examination; Dysmenorrhea; Lump in upper outer quadrant of left breast; Screening for cardiovascular condition; Blood tests for routine general physical examination; Screening for thyroid disorder; Other fatigue; Vitamin D deficiency; Encounter for vitamin deficiency screening; Screening for lipid disorders; Screening for diabetes mellitus (DM); Abnormal glucose; Amenorrhea Start: 09-15-2024 End: 09-15-2024 Physical examination Brennan Ramon [employer] Work Phone: [facility] Start: 09-15-2024 End: 09-15-2024 ambulatory BRENNAN RAMON Not Available Start: 09-15-2024 End: 09-15-2024 Emergency department patient visit Olinda Barron MD Work Phone: [facility] Emergency Department Comment on above: Lower abdominal pain (Primary Dx); Nausea Start: 12-16-2022 End: 12-18-2022 Subsequent hospital visit by physician Davon Denis Radiologist [facility] Mammography Comment on above: Mass of upper outer quadrant of left breast Start: 04-05-2022 End: 04-07-2022 Subsequent hospital visit by physician [facility] Ultrasound Room [facility] Ultrasound Comment on above: Pelvic pain Start: 03-23-2022 End: 03-23-2022 Emergency department patient visit Salima Bustamante Work Phone: [facility] ED Comment on above: Lower abdominal pain (Primary Dx) Start: 04-06-2020 End: 04-06-2020 Subsequent hospital visit by physician Salima Bustamante [facility] Laboratory Comment on above: Vaginal discharge; Encounter for well woman exam with routine gynecological exam Start: 12-09-2019 End: 12-09-2019 Emergency department patient visit Dre Pichardo Work Phone: [facility] ED Comment on above: Abdominal pain, unsp ecified abdominal location (Primary Dx) Start: 03-26-2019 End: 03-26-2019 Patient encounter procedure [facility] Facility:[facility] Start: 03-18-2019 Patient encounter procedure [facility] Facility:[facility] Procedures Date Procedure Procedure Detail Performing Clinician Start: 09-15-2024 Urine test visual color cmprsn meths Brennan Ramon [employer] Work Phone: Start: 09-15-2024 Us transvaginal Olinda Barron MD Work Phone: Start: 09-15-2024 Comprehensive metabolic panel Olinda Barron MD Work Phone: Start: 09-15-2024 Urinalysis microscopic only Olinda Barron MD Work Phone: Start: 09-15-2024 Urnls dip stick/tablet rgnt auto w/o microscopy Olinda Barron MD Work Phone: Start: 09-15-2024 Microscopic observation [Identifier] in Cervix by Cyto stain Hetal Hopkins DO Work Phone: Start: 12-16-2022 Us breast uni real time with image limited Brennan Posadas APRN - [employer] Work Phone: Start: 04-05-2022 Dup-scan artl lary abdl/pel/scrot&/rpr orgn lmt Salima Bustamante Work Phone: Start: 04-05-2022 Us transvaginal Salima L Wendye Work Phone: Start: 03-23-2022 COVID-19, RAPID Pema Dumont AP RN - [employer]EL [employer] Work Phone: Start: 03-23-2022 Ct abdomen & pelvis w/contrast material Pema Dumont DIRECTOR EXTERNAL COMMUNICATIONS - HEEL C[employer]TER Work Phone: Start: 03-23-2022 Comprehensive metabolic panel Pema Dumont DIRECTOR EXTERNAL COMMUNICATIONS - HEEL CUTTER Work Phone: Start: 03-23-2022 Urinalysis microscopic only Salima L Wendye Work Phone: Start: 03-23-2022 Urine test visual color cmprsn meths [place] Dumont DIRECTOR EXTERNAL COMMUNICATIONS - HEEL C[employer]TER Work Phone: Start: 04-06-2020 Microscopic observation [Identifier] in Cervix by Cyto stain Salima Bustamante Work Phone: Start: 12-09-2019 Urinalysis microscopic only Dre E Eitches Work Phone: Start: 12-09-2019 Urine test visual color cmprsn meths Dre E Eitches Work Phone: Start: 12-09-2019 Urnls dip stick/tablet rgnt auto w/o microscopy Dre E Eitches Work Phone: Start: 12-09-2019 Blood count complete auto&auto difrntl wbc Dre E Eitches Work Phone: Start: 10-09-2012 End: 05-12-2013 H/O: section S/P repeat low transverse Salima Bustamante Work Phone: Plan of Treatment Date Care Activity Detail Author Start: 09-15-2027 Screening for malign ant neoplasm of cervix [facility] Start: 11-10-2024 Influenza vaccination Influenza Vacc ine (#1) [facility] Comment on above: Postponed from 04/18 (Patient Refused) Start: 11-02-2024 End: 11-02-2024 Patient encounter procedure 11/02/2024 2:30 PM EDT Consult [facility] [address] [place] [id number] Hetal Hopkins, DO [address] [place] [address] [facility] Start: 09-15-2024 End: 09-15-2025 25-hydroxyvitamin D3 [Mass/volume] in Serum or Plasma Vitamin D 25 hydroxy Total Lab Routine Blood tests for routine general physical examination Other fatigue Vitamin D deficiency Encounter for vitamin deficiency screening Expected: 09/15/2024 (Approximate), Expires: 09/15/2025 [facility] Comment on above: Expected: 09/15/2024 (Approximate), Expires: 09/15/2025 Start: 09-15-2024 End: 09-15-2025 CBC W Auto Differential panel - Blood CBC and differential Lab Routine Screening for cardiovascular condition Blood tests for routine general physical examination Expected: 09/15/2024 (Approximate), Expires: 09/15/2025 [facility] Comment on above: Expected: 09/15/2024 (Approximate), Expires: 09/15/2025 Start: 09-15-2024 End: 09-15-2025 Comprehensive metabolic 2000 panel - Serum or Plasma Comprehensive metabolic panel Lab Routine Screening for cardiovascular condition Blood tests for routine general physical examination Expected: 09/15/2024 (Approximate), Expires: 09/15/2025 [facility] Work Phone: Comment on above: Expected: 09/15/2024 (Approximate), Expires: 09/15/2025 Start: 09-15-2024 End: 09-15-2025 Hemoglobin A1c/Hemoglobin.total in Blood Hemoglobin A1c Lab Routine Blood tests for routine general physical examination Screening for diabetes mellitus (DM) Abnormal glucose Expected: 09/15/2024 (Approximate), Expires: 09/15/2025 [facility] Comment on above: Expected: 09/15/2024 (Approximate), Expires: 09/15/2025 Start: 09-15-2024 End: 09-15-2025 Lipid 1996 panel - Serum or Plasma Lipid panel Lab Routine Screening for cardiovascular condition Blood tests for routine general physical examination Screening for lipid disorders Expected: 09/15/2024 (Approximate), Expires: 09/15/2025 [facility] Comment on above: Expected: 09/15/2024 (Approximate), Expires: 09/15/2025 Start: 09-15-2024 End: 09-15-2025 THINPREP TIS PAP AND HPV MRNA E6/E7 WITH REFLEX TO HPV 16,18/45 THINPREP TIS PAP AND HPV MRNA E6/E7 WITH REFLEX TO HPV 16,18/45 Pathology and Cytology Routine Cervical cancer screening Expected: 09/15/2024 (Approximate), Expires: 09/15/2025 [facility] Comment on above: Expected: 09/15/2024 (Approximate), Expires: 09/15/2025 Start: 09-15-2024 End: 09-15-2025 TSH W/REFLEX TO FT4 TSH W/REFLEX TO FT4 Lab Routine Blood tests for routine general physical examination Screening for thyroid disorder Other fatigue Expected: 09/15/2024 (Approximate), Expires: 09/15/2025 [facility] Comment on above: Expected: 09/15/2024 (Approximate), Expires: 09/15/2025 Start: 09-15-2024 End: 11-13-2025 US Breast - left Left breast US complete Imaging Routine Lump in upper outer quadrant of left breast Expected: 09/15/2024, Expires: 11/13/2025 [facility] Comment on above: Expected: 09/15/2024 , Expires: 11/13/2025 Start: 09-15-2024 End: 09-15-2024 Patient encounter procedure 09/15/2024 1:30 PM EST Office Visit [facility] [address] [place] [address] Brennan Ramon, MONAE [address] [place] [address] Amenorrhea; Screening for cardiovascular condition; Blood tests for routine general physical examination; Screening for thyroid disorder; Other fatigue; Vitamin D deficiency; Encounter for vitamin deficiency screening; Screening for lipid disorders; Screening for diabetes mellitus (DM); Abnormal glucose [facility] Comment on above: Amenorrhea; Screening for cardiovascular condition; Blood tests for routine general physical examination; Screening for thyroid disorder; Other fatigue; Vitamin D deficiency; Encounter for vitamin deficiency screening; Screening for lipid disorders; Screening for diabetes mellitus (DM); Abnormal glucose Start: 04-18-2024 COVID-19 Vaccine ( season) COVID-19 Vaccine ( season) [facility] Start: 04-18-2024 Influenza vaccination Influenza Vacc ine (#1) [facility] Start: 03-18-2024 Influenza vaccination Flu vaccine (# 1) [facility] Start: 01-28-2024 Screening for malign ant neoplasm of cervix [facility] Start: 04-06-2023 Screening for malign ant neoplasm of cervix Pap smear [facility] Start: 03-18-2023 Influenza vaccination Flu vacc ine (Season Ended) [facility] Start: 03-10-2023 DTaP/Tdap/Td vaccine (2 - Td or Tdap) DTaP/Tdap/Td vaccine (2 - Td or Tdap) [facility] Start: 03-10-2023 DTaP/Tdap/Td vaccine (2 - Td) DTaP/Tdap/Td vaccine (2 - Td) [place] Start: 04-18-2022 Influenza vaccination Flu vaccine (# 1) [facility] Start: 01-27-2022 Screening for malign ant neoplasm of cervix Cervical cancer screen [place], [place] Start: 11-05-2021 COVID-19 Vaccine (3 - Booster for Pfizer series) COVID-19 Vaccine (3 - Booster for Pfizer series) [facility] Start: 08-02-2021 COVID-19 Vaccine (3 - Booster for Pfizer series) COVID-19 Vaccine (3 - Booster for Pfizer series) [facility] Start: 04-18-2020 Influenza vaccination [place], [place] Start: 12-17-2019 End: 12-17-2019 Ancillary Procedure [facility] Start: 2009 Hepatitis B vaccine (1 of 3 - 19+ 3-dose series) Hepatitis B vaccine (1 of 3 - 19+ 3-dose series) [facility] Start: 2008 Hepatitis C screening Hepatitis C sc reen [facility] Start: 2003 Varicella vaccine (1 of 2 - 13+ 2-dose series) Varicella vaccine (1 of 2 - 13+ 2-dose series) [facility] Start: 2002 Depression Screen Depression Screen [facility] [employer] Start: 1991 Varicella vaccine (1 of 2 - 2-dose childhood series) Varicella vaccine (1 of 2 - 2-dose childhood series) [facility]BDOMEN PELVIS W IV CONTRAST Additional Contrast? None CT ABDOMEN PELVIS W IV CONTRAST Additional Contrast? None Imaging STAT 03/23/2022 12:09 PM EDT [facility] Phone: End: 04-06-2020 Culture, Genital Culture, Genital Microbiology Routine Vaginal discharge 1 Occurrences starting 04/06/2020 until 04/06/2020 [place], [place] Comment on above: 1 Occurrences starti ng 04/06/2020 until 04/06/2020 Culture, Genital Culture, Genita l Microbiology Routine Vaginal discharge 04/06/2020 3:00 PM EDT [place] End: 04-06-2020 Cytopathology procedure, preparation of smear, genital source PAP SMEAR Lab Routine Encounter for well woman exam with routine gynecological exam 1 Occurrences starting 04/06/2020 until 04/06/2020 [place] Comment on above: 1 Occurrences starti ng 04/06/2020 until 04/06/2020 End: 12-16-2022 JU JUAN JOSÉ DIGITAL DIAGNOSTIC BILATERAL JU JUAN JOSÉ DIGITAL DIAGNOSTIC BILATERAL Imaging Routine Mass of upper outer quadrant of left breast 1 Occurrences starting 12/16/2022 until 12/16/2022 [facility] [email or web address] Phone: Comment on above: 1 Occurrences starti ng 12/16/2022 until 12/16/2022 End: 12-16-2022 US BREAST LIMITED RIGHT US BREAST LIMITED RIGHT Imaging Routine Mass of upper outer quadrant of left breast 1 Occurrences starting 12/16/2022 until 12/16/2022 [employer] Phone: Comment on above: 1 Occurrences starti ng 12/16/2022 until 12/16/2022 US DUP ABD PEL RETRO SCROT LIMITED US DUP ABD PEL RETRO SCROT LIMITED Imaging Routine Pelvic pain 04/05/2022 4:26 PM EDT [employer] Work Phone: Immunizations Immunization Date Immunization Notes Care Provider Mela antonyrylan 03-10-2013 tetanus toxoid, redu yousif diphtheria toxoid, and acellular pertussis vaccine, adsorbed Dre Eikb [facility] Proenza Schouer Payers Date Payer Category Payer Private Health Insurance [facility] [id number] 2022 Unknown [id number] 2019 Unknown 2014 Unknown [employer] xxxxxxxxx 2014-Present [phone] [address] [place] [address] xxxxxxxxx [id number] 2014 Unknown [id number] 1990 Unknown [id number] 1990 Unknown [id number] 1990 Unknown [id number] 1990 Unknown [id number] 1990 Unknown [id number] Social History Date Type Detail Facility Start: 12-09-2019 End: 06-18-2023 Tobacco smoking status NHIS Never smoker [facility] Start: 12-09-2019 End: 11-02-2024 Alcohol intake Current drinker of alcohol (finding) [place], [place] Start: 03-22-2019 Alcohol Comment rare [place], [place] Start: 1990 Sex Assigned At Not on file [place], [place] Exposure to SARS-CoV -2 (event) Unable to assess [place] Start: 04-06-2020 End: 06-18-2023 Tobacco use and exposure Never used [place], [place] Start: 03-13-2022 End: 03-23-2022 Exposure to SARS-CoV-2 (event) Not sure [facility] Work Phone: Start: 03-23-2022 End: 09-15-2024 History of Social function [facility] Start: 03-23-2022 End: 09-15-2024 Tobacco use panel [facility] PHQ-2 Score 0 [facility] How often to you hav e a drink containing alcohol? Monthly or less [facility] How many standard drinks containing alcohol do you have on a typical day? 3 or 4 [facility] How often do you hav e 6 or more drinks on 1 occasion? Never [facility] Start: 06-18-2023 Alcohol Comment caffeine intak e: 1-2 cups per day of coffee [facility] Clinical Notes 09-15-2024 to 11-02-2024 Effie Jack - 11/02/2024 2:30 PM Jerri Lara LPN - 10/13/2024 3:40 PM Dorita Ramon NP - 09/15/2024 1:30 PM ESTDischarge InstructionsAttachments Note Date & Type Note Facility 11-02-2024 History of Presen t illness Narrative Reason for Appointment: Patient ID: Pta Pathak is a 34 y.o. female who presents for Pre-op Visit Patient presents today for Pre Op appointment. Patient is scheduled to undergo Da Pablo assisted Bilateral Laparoscopic Salpingectomy on 11/26/[address] Hopkins at [facility]. 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 anthony for this Ovarian cyst Positive Chlamydia PCR 2018 Social History Tobacco Use Smoking status: Never Smokeless tobacco: Never Vaping Use Vaping status: Never Used Substance Use Topics Alcohol use: Yes Comment: caffeine intake: 1-2 cups per day of coffee Drug use: Never FAMILY HISTORY Family History Problem Relation Name Age of Onset No Known Problems Sister No Known Problems Daughter No Known Problems Son Breast cancer Maternal Grandmother Heart disease Maternal Grandfather Depression Paternal Grandmother SURGICAL HISTORY Past Surgical History: Procedure Laterality Date SECTION, LOW TRANSVERSE x2 SALPINGECTOMY 04/2019 fallopian tube removal- full left, partial right, ovaries and uterus remain TUBAL LIGATION WISDOM TOOTH EXTRACTION REVIEW OF SYSTEMS Review of Systems: Review of Systems Constitutional: Negative. HENT: Negative. Eyes: Negative. Respiratory: Negative. Cardiovascular: Negative. Gastrointestinal: Negative. Genitourinary: Positive for menstrual problem and pelvic pain. Musculoskeletal: Negative. Skin: Negative. Neurological: Negative. All other systems reviewed and are negative. Hematological: Negative. Endocrine: Negative. Allergic/Immunologic: Negative. OBJECTIVE Objective: Physical Exam Constitutional: Appearance: Normal appearance. She is well-developed. Cardiovascular: Rate and Rhythm: Normal rate and regular rhythm. Pulmonary: Effort: Pulmonary effort is normal. Breath sounds: Normal breath sounds. Abdominal: General: Bowel sounds are normal. There is no distension. Palpations: Abdomen is soft. Tenderness: There is no abdominal tenderness. There is no guarding or rebound. Musculoskeletal: General: No swelling. Normal range of motion. Right lower leg: No edema. Left lower leg: No edema. Neurological: Mental Status: She is alert and oriented to person, place, and time. Skin: General: Skin is warm and dry. Psychiatric: Mood and Affect: Mood normal. Behavior: Behavior normal. Vitals and nursing note reviewed. Exam conducted with a manufacturing analyst present. Vitals: Estimated body mass index is 26.76 kg/m as calculated from the following: Height as of 23: 5' 5 . Weight as of this encounter: 160 lb 12.8 oz. BP: 96/62 Patient's last menstrual period was 10/13/2024 (approximate). ASSESSMENT & PLAN ICD-10-CM 1. Pre-op examination Z01.818 2. Dysmenorrhea N94.6 3. Pelvic pain in female R10.2 Pre Op: Patient is doing well but has complaints of pelvic pain, and dysmenorrhea. I have discussed conservative management vs. surgical management with the patient in detail and patient desires surgical management at this time. Patient will undergo Da Pablo assisted Bilateral Laparoscopic Salpingectomy on 11/26/2024. Patient had her fallopian tubes removed in the past (2019) but she only believes that it was partially. Patient will have bilateral salpingectomy to remove what's left of tubes and evaluate the abdomen for what could potentially be the cause of her pain. Surgical consents were signed, mmc was reviewed, and patient is to proceed to [facility] OR. Follow Up: Patient is to follow up between 1-2 weeks post operative to assess proper healing and recovery from procedure. Documented by Vee Lara LPN on behalf of: Hetal Hopkins DO documented in this encounter [facility] 10-13-2024 History of Presen t illness Narrative Reason for Appointment: Patient ID: Pat Pathak is a 34 y.o. female who presents for Pelvic Pain Patient presents today for Acute Visit. and Consult appointment. 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 anthony for this Ovarian cyst Positive Chlamydia PCR 2019 Social History Tobacco Use Smoking status: Never Smokeless tobacco: Never Vaping Use Vaping status: Never Used Substance Use Topics Alcohol use: Yes Comment: caffeine intake: 1-2 cups per day of coffee Drug use: Never FAMILY HISTORY Family History Problem Relation Name Age of Onset No Known Problems Sister No Known Problems Daughter No Known Problems Son Breast cancer Maternal Grandmother Heart disease Maternal Grandfather Depression Paternal Grandmother SURGICAL HISTORY Past Surgical History: Procedure Laterality Date SECTION, LOW TRANSVERSE x2 SALPINGECTOMY 04/2019 fallopian tube removal- full left, partial right, ovaries and uterus remain TUBAL LIGATION WISDOM TOOTH EXTRACTION REVIEW OF SYSTEMS Review of Systems: Review of Systems Constitutional: Negative. HENT: Negative. Eyes: Negative. Respiratory: Negative. Cardiovascular: Negative. Gastrointestinal: Negative. Genitourinary: Positive for dyspareunia and pelvic pain. Musculoskeletal: Negative. Skin: Negative. Neurological: Negative. All other systems reviewed and are negative. Hematological: Negative. Endocrine: Negative. Allergic/Immunologic: Negative. OBJECTIVE Objective: Physical Exam Constitutional: Appearance: Normal appearance. She is well-developed. Cardiovascular: Rate and Rhythm: Normal rate and regular rhythm. Pulmonary: Effort: Pulmonary effort is normal. Breath sounds: Normal breath sounds. Abdominal: General: Bowel sounds are normal. There is no distension. Palpations: Abdomen is soft. Tenderness: There is no abdominal tenderness. There is no guarding or rebound. Musculoskeletal: General: No swelling. Normal range of motion. Right lower leg: No edema. Left lower leg: No edema. Neurological: Mental Status: She is alert and oriented to person, place, and time. Skin: General: Skin is warm and dry. Psychiatric: Mood and Affect: Mood normal. Behavior: Behavior normal. Vitals and nursing note reviewed. Exam conducted with a manufacturing analyst present. Vitals: Estimated body mass index is 26.81 kg/m as calculated from the following: Height as of 23: 5' 5 . Weight as of this encounter: 161 lb 1.9 oz. BP: Patient's last menstrual period was 09/15/2024. ASSESSMENT & PLAN ICD-10-CM 1. Dysmenorrhea N94.6 Ambulatory referral to Obstetrics / Gynecology 2. Pelvic pain in female R10.2 Pt presents with pain and dysmenorrhea. Pt had a tubal in the past. Pt desires surgical management at this time. Pt to be scheduled for dx lap with poss JASMYNE poss FOE poss BSO. Pt to return for preop. Pt has had cultures, ultrasound UA and preg test at previous physician. Documented by Vee Lara LPN on behalf of: Hetal Hopkins DO documented in this encounter [facility] 09-15-2024 History of Presen t illness Narrative Images from the original note were not included. Pat Pathak is a 34 y.o. female presents with chief complaint of No chief complaint on file. HPI: HPI Patient Reported S/S to Nurse: Reviewed [facility]- ER FOLLOW UP Pt seen at [facility] ER this morning for lower abdominal pain Had transvaginal US-negative for endometrial thickening/ovarian cysts/fibroids, labs unremarkable They gave her IM toradol, IV fluids, and zofran Pain managed at this time Reports having sharp stabbing pain ovary to ovary as well as tenderness, and bloating like I have to poop weakness, nausea, dizziness Worse on first day of menses and last a few hours. Reports taking naproxen PRN but does not take the edge off States this has been going on since menarche around age 13. Requesting FMLA Reports periods have been so light that she does not need pads or tampons x 11 years/since last child Started period yesterday BREAST EXAM Reports still having lump to left breast, but pt feels like it remains unchanged left breast US- 12/16/2022- Probably benign lesion corresponds to palpable abnormality suspected fibroadenoma Rec repeat US in 6 months one time; previous US order from 06/16/2023 family hx: maternal grandmother passed at an early age of breast CA when pts mother was 13 LABS- open labs from 05/2023; cbc/cmp/ua 09/15/2024 in ER HEP C SCREENING- none on file PAP- 03/2020- NILM; 01/2019 ASCUS HPV positive; declined pap on 12/25/2022 WELLNESS- 08/2024 VACCINES- tdap 02/2013 DENTIST- Dr Henry/Afia 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[employer] & SOCIAL MEDIA MANAGER- Dr Anthony/Lacie Oreilly SUBJECTIVE: MEDICATIONS: Current Outpatient Medications Medication Instructions ondansetron ODT (ZOFRAN-ODT) 4 mg ALLERGIES: Allergies Allergen Reactions Pollen Extract Other SURGICAL HISTORY: Past Surgical History: Procedure Laterality Date SECTION, LOW TRANSVERSE x2 SALPINGECTOMY 04/2019 fallopian tube removal- full left, partial right, ovaries and uterus remain TUBAL LIGATION WISDOM TOOTH EXTRACTION FAMILY HISTORY: Family History Problem Relation Name Age of Onset No Known Problems Sister No Known Problems Daughter No Known Problems Son Breast cancer Maternal Grandmother Heart disease Maternal Grandfather Depression Paternal Grandmother SOCIAL HISTORY: Social History Tobacco Use Smoking status: Never Smokeless tobacco: Never Vaping Use Vaping status: Never Used Substance Use Topics Alcohol use: Yes Comment: caffeine intake: 1-2 cups per day of coffee Drug use: Never Depression: Not at risk (09/15/2024) PHQ-2 PHQ-2 Score: 2 REVIEW OF SYMPTOMS: Review of Systems Constitutional: Negative for activity change, appetite change, fatigue and fever. HENT: Negative for hearing loss, trouble swallowing and voice change. Eyes: Negative for visual disturbance. Breasts: Positive for breast mass. Negative for breast discharge. Respiratory: Negative for cough, chest tightness, shortness of breath and wheezing. Cardiovascular: Negative for chest pain, palpitations and leg swelling. Gastrointestinal: Positive for nausea. Negative for abdominal distention, abdominal pain, constipation, diarrhea and vomiting. Genitourinary: Positive for menstrual problem. Negative for difficulty urinating, flank pain, frequency, urgency, vaginal discharge, vaginal pain and vaginal dryness. Musculoskeletal: Negative for arthralgias, gait problem and myalgias. Neurological: Positive for dizziness and weakness. Negative for syncope, light-headedness, numbness and headaches. Psychiatric/Behavioral: Negative for agitation, behavioral problems, confusion, decreased concentration, dysphoric mood, hallucinations, self-injury, sleep disturbance and suicidal ideas. The patient is not nervous/anxious and is not hyperactive. Endocrine: Negative for cold intolerance, heat intolerance, polydipsia, polyphagia and polyuria. Allergic/Immunologic: Negative for environmental allergies. OBJECTIVE: Visit Vitals BP 120/76 Pulse 71 Temp 98.2 F (Tympanic) Wt 167 lb LMP 09/15/2024 SpO2 98% BMI 27.79 kg/m Smoking Status Never BSA 1.86 m Physical Exam Vitals and nursing note reviewed. Constitutional: Appearance: Normal appearance. She is normal weight. HENT: Head: Normocephalic and atraumatic. Cardiovascular: Rate and Rhythm: Normal rate and regular rhythm. Pulses: Normal pulses. Heart sounds: Normal heart sounds. Pulmonary: Effort: Pulmonary effort is normal. Breath sounds: Normal breath sounds. No wheezing. Chest: Breasts: Breasts are symmetrical. Right: No swelling, bleeding, inverted nipple, mass, nipple discharge, skin change or tenderness. Left: No swelling, bleeding, inverted nipple, mass, nipple discharge, skin change or tenderness. Comments: Fibrous breasts bilateral inner lower quadrants, palpable mass to left upper outer quadrant Abdominal: General: Abdomen is flat. Bowel sounds are normal. There is no distension. Palpations: Abdomen is soft. There is no mass. Tenderness: There is no abdominal tenderness. There is no guarding or rebound. Hernia: No hernia is present. There is no hernia in the left inguinal area or right inguinal area. Genitourinary: General: Normal vulva. Pubic Area: No rash or pubic lice. Labia: Right: No rash, tenderness, lesion or injury. Left: No rash, tenderness, lesion or injury. Urethra: No urethral pain or urethral swelling. Vagina: No signs of injury and foreign body. No vaginal discharge, erythema, tenderness, bleeding, lesions or prolapsed vaginal forbes. Cervix: Cervical bleeding present. No cervical motion tenderness, discharge, friability, lesion or erythema. Uterus: Not deviated, not tender and no uterine prolapse. Adnexa: Right: No mass, tenderness or fullness. Left: No mass, tenderness or fullness. Rectum: No external hemorrhoid. Normal anal tone. Lymphadenopathy: Upper Body: Right upper body: No axillary adenopathy. Left upper body: No axillary adenopathy. Skin: General: Skin is warm and dry. Neurological: General: No focal deficit present. Mental Status: She is alert and oriented to person, place, and time. Mental status is at baseline. Psychiatric: Mood and Affect: Mood normal. Behavior: Behavior normal. Thought Content: Thought content normal. Judgment: Judgment normal. ASSESSMENT AND PLAN: Assessment/Plan Diagnoses and all orders for this visit: Cervical cancer screening - THINPREP TIS PAP AND HPV MRNA E6/E7 WITH REFLEX TO HPV 16,18/45; Future Wellness examination Wellness performed at office visit today. Height, weight, BMI, problem list, and immunizations records reviewed. Dental care discussed with patient. Encouraged annual vision screenings and semi-annual dental care. Encouraged to eat a diet that is rich in plant-based foods and lean protein. Encouraged regular periods of exercise. Limit or eliminate junk food and sources of excess calories. Encouraged to maintain open communication with provider regarding any changes in condition. Encouraged 150 minutes of exercise weekly or amount appropriate to current level of function. Discussed family/friend/social support and importance of maintaining emotional connections. Follow up as discussed. Patient verbalized understanding of importance of keeping open communication with health care providers. Dysmenorrhea - POCT , urine manually resulted - Ambulatory referral to Obstetrics / Gynecology; Future Discussed oral contraceptives-declined 800 mg tylenol encouraged daily 2 days prior to menstruation and 2 days into period Lump in upper outer quadrant of left breast - Left breast US complete; Future Screening for cardiovascular condition - Comprehensive metabolic panel; Future - CBC and differential; Future - Lipid panel; Future Blood tests for routine general physical examination - Comprehensive metabolic panel; Future - TSH W/REFLEX TO FT4; Future - CBC and differential; Future - Vitamin D 25 hydroxy Total; Future - Lipid panel; Future - Hemoglobin A1c; Future Screening for thyroid disorder - TSH W/REFLEX TO FT4; Future Other fatigue - TSH W/REFLEX TO FT4; Future - Vitamin D 25 hydroxy Total; Future Vitamin D deficiency - Vitamin D 25 hydroxy Total; Future Encounter for vitamin deficiency screening - Vitamin D 25 hydroxy Total; Future Screening for lipid disorders - Lipid panel; Future Screening for diabetes mellitus (DM) - Hemoglobin A1c; Future Abnormal glucose - Hemoglobin A1c; Future Follow up in about 6 months (around 03/15/2025) for fmla visit. documented in this encounter [facility] 09-15-2024 Hospital Discharg e Elia Feliz MD - 09/15/2024 7:59 AM EST Avoid eating any spicy food, milk type products or drinks that have caffeine in it. Take all medications as prescribed. For pain use ibuprofen (Motrin) or acetaminophen (Tylenol), unless prescribed medications that have acetaminophen in it. You can take over the counter acetaminophen tablets (1 - 2 tablets of the 500-mg strength every 6 hours) or ibuprofen tablets (2 tablets every 4 hours). PLEASE RETURN TO THE EMERGENCY DEPARTMENT IMMEDIATELY for worsening symptoms, or if you develop any concerning symptoms such as: high fever not relieved by acetaminophen (Tylenol) and/or ibuprofen (Motrin), chills, shortness of breath, chest pain, persistent nausea and/or vomiting, numbness, weakness or tingling in the arms or legs or change in color of the extremities, changes in mental status, persistent headache, blurry vision. Return within 8 - 12 hours if you have any of the following: worsening of pain in your abdomen, no food sounds good to you, you continue to vomit, pain goes to your back, have pain in the abdomen when going over a bump in the car or when you jump up and down, develop vaginal bleeding or discharge, inability to urinate, unable to follow up with your physician, or other any other care or concern. The following attachments cannot be sent through Care Everywhere.Abdominal Pain (Liberian)Nausea and Vomiting (Liberian)documented in this encounter [employer] Evaluation note Diagnosis Lower abdominal pain- Primary Abdominal pain, other specified site documented in this encounter [employer] Phone: evaluation note* Diagnosis Pelvic pain documented in this encounter [employer] Phone: evaluation note* Diagnosis Mass of upper outer quadrant of left breast documented in this encounter [employer] Phone: evaluation note* Diagnosis Mass of upper outer quadrant of left breast documented in this encounter [employer] Phone: evaluation note* Diagnosis Lower abdominal pain- Primary Abdominal pain, other specified site Nausea Nausea alone [facility] Diagnosis Cervical cancer screening- Primary Screening for malignant neoplasm of the cervix Wellness examination Dysmenorrhea Lump in upper outer quadrant of left breast Screening for cardiovascular condition Screening for other and unspecified cardiovascular conditions Blood tests for routine general physical examination Laboratory examination ordered as part of a routine general medical examination Screening for thyroid disorder Other fatigue Vitamin D deficiency Encounter for vitamin deficiency screening Screening for lipid disorders Screening for diabetes mellitus (DM) Screening for diabetes mellitus Abnormal glucose Amenorrhea Absence of menstruation documented in this encounter [facility]* Diagnosis Dysmenorrhea Pelvic pain in female Unspecified symptom associated with female genital organs documented in this encounter [facility]* Diagnosis Pre-op examination Dysmenorrhea Pelvic pain in female Unspecified symptom associated with female genital organs documented in this encounter [facility] Dis[facility]* Attachments The following attachments cannot be sent through Care Everywhere. 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 Manager Latest Code Status on File Code Status Date Activated Date Inactivated Comments Full Code 03/08/2013 8:44 AM 03/10/2013 5:22 PM Full Code 03/08/2013 5:31 AM 03/08/2013 8:44 AM Full Code 03/07/2013 2:06 PM 03/07/2013 5:59 PM Documents on File Type Date Recorded 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 ACP-Advance Directive ACP-Power of Government Sales Manager Latest Code Status on File Code Status Date Activated Date Inactivated Comments Full Code 03/08/2013 8:44 AM 03/10/2013 5:22 PM Full Code 03/08/2013 5:31 AM 03/08/2013 8:44 AM Full Code 03/07/2013 2:06 PM 03/07/2013 5:59 PM Latest Code Status on File Code Status Date Activated Date Inactivated Comments Full Code 03/08/2013 8:44 AM 03/10/2013 5:22 PM Code Status History Code Status Date Activated Date Inactivated Comments Full Code 03/08/2013 5:31 AM 03/08/2013 8:44 AM Full Code 03/07/2013 2:06 PM 03/07/2013 5:59 PM Date Activated Date Inactivated Comments 03/08/2013 8:44 AM 03/10/2013 5:22 PM Date Activated Date Inactivated Comments 03/08/2013 5:31 AM 03/08/2013 8:44 AM Date Activated Date Inactivated Comments 03/07/2013 2:06 PM 03/07/2013 5:59 PM Discharge Instructions * Attachments The following attachments cannot be sent through Care Everywhere. * Pelvic Pain (Liberian) documented in this encounter Assessments Diagnosis Abdominal pain, unspecified abdominal location Diagnosis Vaginal discharge Leukorrhea, not specified as infective Encounter for well woman exam with routine gynecological exam Reason for Referral Specialty Diagnoses / Procedures Referred By Contac t Referred To Contact Radiology Diagnoses Pelvic pain Procedures US DUP ABD PEL RETRO SCROT LIMITED Rine, Salima L [address] [place] [id number] Referral ID Status Reason Start Date Expiration Date Visits Re quested Visits Authorized [id number] Open 04/05/2022 04/05/2023 1 1 Specialty Diagnoses / Procedures Referred By Contac t Referred To Contact Radiology Diagnoses Pelvic pain Procedures US NON OB TRANSVAGINAL Wendye, Salima L [address] [place] [address] Referral ID Status Reason Start Date Expiration Date Visits Re quested Visits Authorized [id number] Open 04/04/2022 04/04/2023 1 1 Specialty Diagnoses / Procedures Referred By Contac t Referred To Contact Radiology Diagnoses Mass of upper outer quadrant of left breast Procedures JU JUAN JOSÉ DIGITAL DIAGNOSTIC BILATERAL Brennan Posadas APRN - NP [address] [place] [address] Referral ID Status Reason Start Date Expiration Date V isits Requested Visits Authorized [id number] Pending Review 12/09/2022 12/09/2023 1 1 Specialty Diagnoses / Procedures Referred By Contac t Referred To Contact Radiology Diagnoses Mass of upper outer quadrant of left breast Procedures US BREAST LIMITED RIGHT Brennan Posaads APRN - NP [address] [place] [address] Referral ID Status Reason Start Date Expiration Date V isits Requested Visits Authorized [id number] Pending Review 12/09/2022 12/09/2023 1 1 Specialty Diagnoses / Procedures Referred By Contac t Referred To Contact Radiology Diagnoses Mass of upper outer quadrant of left breast Procedures US BREAST LIMITED LEFT Cuauhtemoc BALDEMAR Agee NP [address] [place], [place] [id number] Referral ID Status Reason Start Date Expiration Date V isits Requested Visits Authorized [id number] Pending Review 12/09/2022 12/09/2023 1 1 Additional Source Comments INFORMATION SOURCE (unrecogn ized section and content) DATE CREATED AUTHOR 04/05/[address] [facility] DATE CREATED AUTHOR AUTHOR'S ORGANIZ ATION 09/21/2024 [facility] DATE CREATED AUTHOR AUTHOR'S ORGANIZ ATION 11/05/2024 [facility] EPIC Reason for Visit (unrecogniz ed section and content) Reason Comments Abdominal Pain RLQ- states it is ov mariana pain, she is scheduled to have ultrasound next Friday, states pain is usually worse on 1st and 2nd day of period Reason Comments Abdominal Pain States has an ovaria n cyst Specialty Diagnoses / Procedures Referred By Contac t Referred To Contact Radiology Diagnoses Pelvic pain Procedures US NON OB TRANSVAGINAL WendyChuck ontiverosri L [address] [place] [id number] Referral ID Status Reason Start Date Expiration Date Visits Re quested Visits Authorized [id number] Open 04/04/2022 04/04/2023 1 1 Specialty Diagnoses / Procedures Referred By Contac t Referred To Contact Radiology Diagnoses Mass of upper outer quadrant of left breast Procedures JU JUAN JOSÉ DIGITAL DIAGNOSTIC BILATERAL CuauhtemocBrennan APRN - NP [address] [address] [place] [id number] Referral ID Status Reason Start Date Expiration Date V isits Requested Visits Authorized [id number] Pending Review 12/09/2022 12/09/2023 1 1 Specialty Diagnoses / Procedures Referred By Contac t Referred To Contact Radiology Diagnoses Mass of upper outer quadrant of left breast Procedures US BREAST LIMITED LEFT Brennan Posadas APRN - [employer] [address] [place] [address] Referral ID Status Reason Start Date Expiration Date V isits Requested Visits Authorized [id number] Pending Review 12/09/2022 12/09/2023 1 1 Reason Comments Abdominal Pain Lower abd pain start ed last night. Reason Comments Pelvic Pain Specialty Diagnoses / Procedures Referred By Contac t Referred To Contact Obstetrics and Gynecology Diagnoses Dysmenorrhea Procedures ID OFFICE/OUTPATIENT NEW HIGH MDM 60 MINUTES Brnenan Ramon, [employer] [address] [place] [address] Phone: tel: fax: Hetal Hopkins DO [address] [place] [address] Phone: tel: Referral ID Status Reason Start Date Expiration Date V isits Requested Visits Authorized [id number] Closed Specialty Services Required 09/15/2024 03/14/2025 1 1 Reason Comments Pre-op Visit Scheduled Active and Recently Administ ered Medications (unrecognized section and content) Medication Order 03/21/2022 03/22/2022 03/23/2022 ketorolac (TORADOL) injection 30 mg (COMPLETED) Ketorolac is contraindicated in patients with advanced renal impairment and in patients at risk of renal failure due to volume depletion. For 65 years of age and older OR weight less than 50 kg, use 15 mg IV every 6 hours; MAX dose: 60 mg/day. Dose greater than 30 mg must be administered via intramuscular route. Do not administer for more than 5 days., 30 mg, IntraVENous, ONCE, 1 dose, On 03/23/22 at 1215, Do not administer for more than 5 days. 1305 (Given - Provid er: Barbi Prado RN) morphine (PF) injection 2 mg (COMPLETED) 2 mg, IntraVENous, ONCE, 1 dose, On 03/23/22 at 1215, If oral and IV narcotics ordered, use oral first and only use IV if oral is ineffective or cannot take oral. Do Not give oral and IV within 1 hour of each other unless specifically ordered. 1306 (Given - Provid er: Barbi Prado, RN) ondansetron (ZOFRAN) injection 4 mg (COMPLETED) 4 mg, IntraVENous, ONCE, 1 dose, On 03/23/22 at 1215 1305 (Given - Provid er: Barbi Prado RN) PRN Medication Order 03/21/2022 03/22/2022 03/23/2022 iopamidol (ISOVUE-370) 76 % injection 75 mL (COMPLETED) 75 mL, IntraVENous, IMG ONCE PRN, 1 dose, Starting on 03/23/22 at 1206, Until 03/23/22 at 1209, Other 1209 (Given - Provid er: Yamilet Singh) Scheduled Medication Order 09/13/2024 09/14/2024 09/15/2024 ketorolac (TORADOL) injection 30 mg (COMPLETED) 30 mg, IntraVENous, ONCE, 1 dose, On Fri09/15/24 at 0630, Do not administer for more than 5 days. 0651 (Given - Provid er: Danielle Fajardo RN) ondansetron (ZOFRAN) injection 4 mg (COMPLETED) 4 mg, IntraVENous, ONCE, 1 dose, On Fri09/15/24 at 0630 0650 (Given - Provid er: Danielle Fajardo RN) sodium chloride 0.9 % bolus 1,000 mL (COMPLETED) 1,000 mL, IntraVENous, at 983.6 mL/hr, Administer over 61 Minutes, ONCE, On Fri09/15/24 at 0630, For 1 dose 0648 (New Bag - Prov ider: Danielle Fajardo RN)0752 (Stopped - Provider: Danielle Fajardo RN) Care Teams (unrecognized sec tion and content) General Administrator Relationship Specialty Start Date End Date Salima Bustamante [address] [place] [address] PCP - General 12/09/19 General Administrator Relationship Specialty Start Date End Date Salima Bustamante L [address] [place] [address] PCP - General 12/09/19 General Administrator Relationship Specialty Start Date End Date Salima Bustamante [address] [place] [address] PCP - General 12/09/19 General Administrator Relationship Specialty Start Date End Date Salima Bustamante [address] [place] [address] PCP - General 12/09/19 General Administrator Relationship Specialty Start Date End Date Salima Bustamante, DIRECTOR EXTERNAL COMMUNICATIONS - [employer] [address] [place] [address] PCP - General 12/09/19 General Administrator Relationship Specialty Start Date End Date Maicol Sigala DO [address] [place] [address] PCP - General Family Medicine 12/24/22 General Administrator Relationship Specialty Start Date End Date Maicol Sigala DO [address] [place] [address] PCP - General Family Medicine 12/24/22 General Administrator Relationship Specialty Start Date End Date Maicol Sigala DO [address] [place] [address] PCP - General Family Medicine 12/24/22 General Administrator Relationship Specialty Start Date End Date Maicol Sigala DO [address] [place], [place] [id number] PCP - General Family Medicine 12/24/22 General Administrator Relationship Specialty Start Date End Date Maicol Sigala DO [address] [place] [address] PCP - General Family Medicine 12/24/22 Ordered Prescriptions (unrec ognized section and content) Prescription Sig Dispensed Refills Start Date End Da te ondansetron (ZOFRAN-ODT) 4 MG disintegrating tablet Take 1 tablet by mouth 3 times daily as needed for Nausea or Vomiting 21 tablet 09/15/2024 FOR RECORDS PERTAINING TO PATIENTS WHO ARE OR HAVE BEEN ENROLLED IN A CHEMICAL DEPENDENCY/SUBSTANCEABUSE PROGRAM, SOME INFORMATION MAY BE OMITTED. This clinical summary was aggregated from multiple sources. Caution should be exercised in using it in the provision of clinical care. This summary normalizes information from multiple sources, and as a consequence, information in this document may materially change the coding, format and clinical context of patient data. In addition, data may be omitted in some cases. CLINICAL DECISIONS SHOULD BE BASED ON THE PRIMARY CLINICAL RECORDS. [facility] [employer] provides no warranty or guarantee of the accuracy or completeness of information in this document.
[2024-11-26 07:27] LABS: Basophils Percent Auto 0.6 % (0.2-2.0); Eosinophils Absolute Auto 0.2 10^3/uL (0.0-0.7); Eosinophils Percent Auto 2.8 % (0.9-7.0); Hematocrit 38.8 % (36.0-48.0); Hemoglobin 12.7 g/dL (12.0-16.0); Immature Granulocytes Abs Auto 0.01 10^3/uL (0.00-0.03); Immature Granulocytes Pct Auto 0.1 % (0.0-0.5); Lymphocytes Absolute Auto 2.2 10^3/uL (1.2-3.8); Lymphocytes Percent Auto 30.9 % (20.5-60.0); Mean Corpuscular HGB Conc 32.7 g/dL (29.9-35.2); Mean Corpuscular Hemoglobin 31.5 pg (26.7-34.0); Mean Corpuscular Volume 96.3 fL (81.0-99.0); Mean Platelet Volume 9.9 fL (9.5-13.5); Monocytes Absolute Auto 0.5 10^3/uL (0.3-0.8); Monocytes Percent Auto 7.1 % (1.7-12.0); Neutrophils Absolute Auto 4.1 10^3/uL (1.4-6.5); Neutrophils Percent Auto 58.5 % (43.0-75.0); Platelet Count 391 10^3/uL (150-450); Red Blood Count 4.03 10^6/uL (4.20-5.40); Red Cell Distribution Width 12.9 % (11.0-15.0)
[2024-11-26] MEDS: LACTATED RINGER'S SOLUTION 1,000 ML 50 ML IV ×2 (07:49→10:15)
[2024-11-26 09:16] LABS: HCG Quantitative <1 mIU/mL
--- NOTE | 2024-11-26 09:54 | PM.ONB ---
Brief Operative Note Date of procedure: 11/26/24 Pre-op diagnosis general: pelvic pain Post-op diagnosis: other (rt hydrosalpingx, adenomyosis) Procedure: NAME OF PROCEDURE: robotic assisted laparoscopic rt salpingectomy findings, suspected adenomyosis, absent left tube, rt hydrosalpingx PROCEDURE: The patient was taken back to the Operating Room where she was given general anesthesia without difficulty. She was then prepped and draped in the normal sterile fashion after being placed in a dorsal lithotomy position. A wet sponge stick was placed into the patient's vagina. Attention was then turned to the patient's abdomen, where a scalpel was used to make a small infraumbilical incision. The S retractors were then used to dissect the underlying layers until the fascia could be seen. The fascia was then grasped with Alon clamps and tented up. A knife was then used to make a small incision to the fascia. The muscle was identified, at that time two sutures of #0 Vicryl on a GI needle was then used and placed through the fascia. the peritoneum was then identified and entered bluntly. The 10-4 Halley was then placed into the patient's abdomen. This was confirmed with direct visualization of the bowel, using the laparoscope. The patient's abdomen was then insufflated using approximately 4 liters of CO2 gas. Survey of the patient's abdomen demonstrated ovaries were normal in appearance as well as both tubes and uterus. A second and third rt and lt lateral robotic ports which were 8 mm in size, was then placed after the skin incision was made under direct visualization . the robotic arms were engaged. The patient's tube on the patient's right side was identified and tented up using a grasper, the ligasure apparatus was then used to come across the mesosalpingx from the fimbriated end to the insertion site at the uterus, the tube was then amputated and removed in its entirety. . The tube was the removed from the patients abdomen. absent left tube, extensive adhesions of the uterus to the anterior abdominal wall, suspected adenomyosis Excellent hemostasis was noted. The lateral ports were then moved under direct visualization with excellent hemostasis. All instruments were removed from the patient's abdomen. The fascia was closed using the #0 Vicryl on GI needle. The skin was closed using 4-0 Vicryl subcuticularly. All instruments were removed from the patient's vagina as well. The patient was taken out of the dorsal lithotomy position and placed in the supine position and taken to recovery in stable condition. Sponge, lap and needle counts were correct x2. Anesthesia: BLANCA Surgeon: Madhu Hopkins Preparation Plant Supervisor: Evita Soliz Estimated blood loss (mL): 5 Pathology: other (rt tube) Condition: stable Disposition: PACU Urinary Catheter Management Urinary Catheter Management Urethral: Cath placed during this visit: no
--- NOTE | 2024-11-26 10:43 | PC.NURSE ---
Opens eyes and moves all extremities after interventions; SAO2 increases immediately to upper 90's
[2024-11-26] MEDS: HYDROCODONE/ACET 5-325 MG TABLET 1 TAB PO (10:50)
--- NOTE | 2024-11-26 11:43 | PC.NURSE ---
Denies urge to void
--- NOTE | 2024-11-26 12:04 | PC.NURSE ---
Denies urge to void
--- NOTE | 2024-11-26 12:51 | PC.NURSE ---
patient urinated as ordered per physician prior to discharge.
== END 2024-11-26 12:52 | disposition home or self-care (01) ==
PROVIDERS: Visit Provider Obstetrics & Gynecology
PROC: (CPT 840; principal; 2024-11-26 08:50)
DX: Z30.2 Encounter for sterilization (principal); R10.2 Pelvic and perineal pain; N94.6 Dysmenorrhea, unspecified; N70.11 Chronic salpingitis; K66.0 Peritoneal adhesions (postprocedural) (postinfection)
CPT/HCPCS: 58661; 36415; 84702; 85025; 88302; J1100; J1885; J2250; J2371; J2405; J2704; J3010